=== PATIENT | female | born 1970 | race Caucasian/White ===

== ENCOUNTER 2018-05-27 18:16 | Inpatient (IN) | payer MEDICAID ==
[~2018-05-27] VITALS: Ht 154.9 cm; Wt 84.4 kg
[2018-05-27 18:23] VITALS: BP_SYST 159
[2018-05-27 19:22] LABS: BARBITURATE, URINE NEGATIVE (NEG <=200); BENZODIAZEPINE, URINE POSITIVE (NEG <=150); CANNABINOID, URINE POSITIVE (NEG <=50); COCAINE, URINE NEGATIVE (NEG <=150); METHAMPHETAMINES SCREEN,URINE NEGATIVE (NEG <=500); OPIATE, URINE POSITIVE (NEG <=100); PHENCYCLIDINE SCREEN,URINE NEGATIVE (NEG <=25); UR TRICYCLIC ANTIDEPRESSANTS NEGATIVE (NEG <=300); URINE AMPHETAMINE NEGATIVE (NEG <=500); URINE METHADONE NEGATIVE (NEG <=200); URINE OXYCODONE SCREEN NEGATIVE (NEG <=100); URINE PROPOXYPHENE SCREEN NEGATIVE (NEG <=300)
[2018-05-27 19:40] LABS: BASOPHILS % (AUTO) 0.4 % (0.0-2.0); EOSINOPHILS # (AUTO) 0.1 K/uL (0.0-0.4); EOSINOPHILS % (AUTO) 1.8 % (0.0-4.0); HEMOGLOBIN 12.3 g/dL (12.0-16.0); LYMPHOCYTES # (AUTO) 1.6 K/uL (1.0-5.5); LYMPHOCYTES % (AUTO) 24.1 % (20.5-51.5); MEAN CORPUSCULAR HEMOGLOBIN 26 pg (27-31); MEAN CORPUSCULAR HGB CONC 33 % (32-36); MEAN CORPUSCULAR VOLUME 79 fL (79.0-98.0); MONOCYTES # (AUTO) 0.5 K/uL (0.0-1.0); MONOCYTES % (AUTO) 6.9 % (1.7-9.3); NEUTROPHILS # (AUTO) 4.6 K/uL (1.8-7.7); NEUTROPHILS % (AUTO) 66.8 % (40.0-70.0); PLATELET COUNT (AUTO) 345 K/uL (130-430); RED CELL DISTRIBUTION WIDTH 13.5 % (9.0-15.0); WHITE BLOOD COUNT (AUTO) 6.8 K/uL (4.8-10.8)
[2018-05-27 19:49] LABS: CALCIUM 9.6 mg/dL (8.4-11.0); CREATININE 0.8 mg/dL (0.55-1.30); POTASSIUM 3.7 mmol/L (3.5-5.1)
[2018-05-27 19:53] LABS: PROTHROMBIN TIME 9.7 SECS (9.5-12.5); TOTAL BILIRUBIN 0.5 mg/dL (0.0-1.0)
[2018-05-27] MEDS ORDERED: methylPREDNISolone SOD SUCC/PF 62.5 MG/ML VIAL IVP ONE (21:45)
[2018-05-27] MEDS ORDERED: DIPHENHYDRAMINE INJ 50 MG/ML VIAL IVP ONE (21:45)
[2018-05-27] MEDS ORDERED: LORazepam 2 MG/ML VIAL (FOR ER USE) IVP ONE (21:45)
[2018-05-27 23:55] VITALS: BP_SYST 131
[2018-05-28] MEDS ORDERED: LEVO200T8 PO (00:22)
[2018-05-28] MEDS ORDERED: MORP15TA PO (00:22)
[2018-05-28] MEDS ORDERED: HYDR-4272 PO (00:22)
[2018-05-28] MEDS ORDERED: BEN50 PO (00:22)
[2018-05-28] MEDS ORDERED: LORA-259 PO (00:22)
[2018-05-28] MEDS ORDERED: CYCL-10 PO (00:22)
[2018-05-28] MEDS ORDERED: PANT20TA2 PO (00:22)
[2018-05-28] MEDS ORDERED: CAT.1 PO (00:22)
[2018-05-28] MEDS ORDERED: LEVO100T9 PO (00:38)
[2018-05-28] MEDS ORDERED: LEVO125T8 PO (00:38)
[2018-05-28] MEDS: NACL 0.9% 1,000 ML IV SCH ×3 (00:56→21:41)
[2018-05-28] MEDS: LORazepam 2 MG/ML VIAL IVP PRN ×4 (00:57→21:39)
[2018-05-28 08:25] VITALS: BP_SYST 125
[2018-05-28] MEDS: HEPARIN SODIUM,PORCINE 5000 UNITS/ML VIAL SUBCUT SCH ×2 (08:26→21:00)
[2018-05-28] MEDS: METOPROLOL TARTRATE 25 MG TABLET PO SCH ×2 (08:26→21:00)
[2018-05-28] MEDS ORDERED: POTASSIUM CHLORIDE 20 MEQ TAB.PRT.SR PO PRN (09:15)
[2018-05-28] MEDS ORDERED: MAGNESIUM SULFATE 50 ML IV PRN (09:15)
[2018-05-28] MEDS ORDERED: ONDANSETRON HCL 4 MG/2 ML VIAL IVP PRN (09:15)
[2018-05-28] MEDS ORDERED: DOCUSATE SODIUM 100 MG CAPSULE PO PRN (09:15)
[2018-05-28] MEDS ORDERED: LEVOTHYROXINE SODIUM 0.1 MG TABLET PO ONE (09:15)
[2018-05-28] MEDS ORDERED: ZOLPIDEM TARTRATE 5 MG TABLET PO PRN (09:15)
[2018-05-28] MEDS ORDERED: ACETAMINOPHEN 325 MG TABLET PO PRN (09:15)
[2018-05-28] MEDS ORDERED: MORPHINE 2 MG/ML INJ. SYRINGE IVP PRN ×2 (09:15→09:30)
[2018-05-28] MEDS ORDERED: DIPHENHYDRAMINE HCL 25 MG CAPSULE PO PRN (09:15)
[2018-05-28] MEDS ORDERED: MUPIROCIN 2% TOPICAL OINTMENT 22 GM NS PRN (09:15)
[2018-05-28] MEDS: MORPHINE 2 MG/ML INJ. SYRINGE IVP PRN ×3 (10:29→21:40)
[2018-05-28 12:02] VITALS: BP_SYST 106
[2018-05-28 16:21] VITALS: BP_SYST 114
[2018-05-28 20:00] VITALS: BP_SYST 104
[2018-05-29 00:49] VITALS: BP_SYST 116
[2018-05-29] MEDS: LORazepam 2 MG/ML VIAL IVP PRN ×3 (01:55→10:04)
[2018-05-29] MEDS: MORPHINE 2 MG/ML INJ. SYRINGE IVP PRN ×3 (01:56→10:05)
[2018-05-29 06:00] LABS: BASOPHILS % (AUTO) 0.8 % (0.0-2.0); EOSINOPHILS # (AUTO) 0.2 K/uL (0.0-0.4); HEMATOCRIT 31.5 % (36-48); HEMOGLOBIN 10.4 g/dL (12.0-16.0); LYMPHOCYTES # (AUTO) 2.1 K/uL (1.0-5.5); LYMPHOCYTES % (AUTO) 46.3 % (20.5-51.5); MEAN CORPUSCULAR HEMOGLOBIN 26 pg (27-31); MEAN CORPUSCULAR HGB CONC 33 % (32-36); MEAN CORPUSCULAR VOLUME 79 fL (79.0-98.0); MONOCYTES # (AUTO) 0.4 K/uL (0.0-1.0); MONOCYTES % (AUTO) 9.9 % (1.7-9.3); NEUTROPHILS # (AUTO) 1.6 K/uL (1.8-7.7); PLATELET COUNT (AUTO) 274 K/uL (130-430); RED BLOOD CELL COUNT(AUTO) 3.97 MIL/uL (4.2-6.2)
[2018-05-29 06:44] LABS: WHITE BLOOD COUNT (AUTO) 4.3 K/uL (4.8-10.8)
[2018-05-29 06:50] LABS: CALCIUM 8.7 mg/dL (8.4-11.0); CREATININE 0.69 mg/dL (0.55-1.30); POTASSIUM 3.7 mmol/L (3.5-5.1)
[2018-05-29] MEDS ORDERED: LEVOTHYROXINE SODIUM 0.1 MG TABLET PO SCH (07:00)
[2018-05-29 08:06] VITALS: BP_SYST 110
[2018-05-29] MEDS: NACL 0.9% 1,000 ML IV SCH (08:51)
[2018-05-29] MEDS: HEPARIN SODIUM,PORCINE 5000 UNITS/ML VIAL SUBCUT SCH (08:52)
[2018-05-29] MEDS: METOPROLOL TARTRATE 25 MG TABLET PO SCH (08:52)
[2018-05-29 10:39] VITALS: BP_SYST 110
[2018-05-29 12:00] VITALS: BP_SYST 118
== END 2018-05-29 13:15 | disposition home or self-care (01) | DRG 203 ==
LOC: SED 18:16 → STU 23:10
PROVIDERS: ADMIT General Practice; ATTEND General Practice
DX: R07.89 Other chest pain (principal); G92 Toxic encephalopathy; F11.20 Opioid dependence, uncomplicated; F41.9 Anxiety disorder, unspecified; E03.9 Hypothyroidism, unspecified; E66.9 Obesity, unspecified; G89.4 Chronic pain syndrome; I10 Essential (primary) hypertension; K21.9 Gastro-esophageal reflux disease without esophagitis; S30.861A Insect bite (nonvenomous) of abdominal wall, initial encounter; S80.862A Insect bite (nonvenomous), left lower leg, initial encounter; W57.XXXA Bitten or stung by nonvenomous insect and other nonvenomous arthropods, initial encounter; Z82.49 Family history of ischemic heart disease and other diseases of the circulatory system; Z87.442 Personal history of urinary calculi; Z88.8 Allergy status to other drugs, medicaments and biological substances; Z91.041 Radiographic dye allergy status; Y93.89 Activity, other specified; Y92.89 Other specified places as the place of occurrence of the external cause; Y99.8 Other external cause status; Z90.49 Acquired absence of other specified parts of digestive tract; Z79.899 Other long term (current) drug therapy; Z68.35 Body mass index [BMI] 35.0-35.9, adult; Z88.1 Allergy status to other antibiotic agents
CPT/HCPCS: 36415; 71045; 80048; 80053; 80307; 82150-TC; 82550-TC; 83036; 83690-TC; 83735-TC; 83880; 84443-TC; 84484; 84703; 85025; 85379; 85610-TC; 85730-TC; 93005; 93306; 96374; 96375; 99285; J1200; J1644; J2060; J2270; J2405; J2930; J7030; Q0163

== ENCOUNTER 2019-05-31 15:26 | Emergency (ER) | payer MEDICAID, OTHER ==
[~2019-05-31] VITALS: Ht 154.9 cm; Wt 81.6 kg
[~2019-05-31 15:26] MED LIST: BEN50 PO; CAT.1 PO; CYCL-10 PO; HYDR-4272 PO; LEVO125T8 PO; LORA-259 PO; MORP15TA PO; PANT20TA2 PO
[2019-05-31 15:30] VITALS: BP_SYST 157
[2019-05-31 16:48] LABS: BASOPHILS # (AUTO) 0.1 K/uL (0.0-0.2); BASOPHILS % (AUTO) 0.8 % (0.0-2.0); EOSINOPHILS # (AUTO) 0.1 K/uL (0.0-0.4); EOSINOPHILS % (AUTO) 2.3 % (0.0-4.0); HEMATOCRIT 37.4 % (36-48); HEMOGLOBIN 12.2 g/dL (12.0-16.0); LYMPHOCYTES # (AUTO) 1.7 K/uL (1.0-5.5); LYMPHOCYTES % (AUTO) 27.8 % (20.5-51.5); MEAN CORPUSCULAR HEMOGLOBIN 27 pg (27-31); MEAN CORPUSCULAR HGB CONC 33 % (32-36); MEAN CORPUSCULAR VOLUME 82 fL (79.0-98.0); MONOCYTES # (AUTO) 0.5 K/uL (0.0-1.0); NEUTROPHILS # (AUTO) 3.8 K/uL (1.8-7.7); NEUTROPHILS % (AUTO) 61.1 % (40.0-70.0); PLATELET COUNT (AUTO) 320 K/uL (130-430); RED BLOOD CELL COUNT(AUTO) 4.55 MIL/uL (4.2-6.2); RED CELL DISTRIBUTION WIDTH 15.2 % (9.0-15.0); WHITE BLOOD COUNT (AUTO) 6.2 K/uL (4.8-10.8)
[2019-05-31 17:04] LABS: CALCIUM 9.3 mg/dL (8.4-11.0); CREATININE 0.78 mg/dL (0.55-1.30); POTASSIUM 3.9 mmol/L (3.5-5.1)
[2019-05-31 17:10] LABS: ALBUMIN 3.9 g/dL (3.4-4.8); TOTAL BILIRUBIN 0.2 mg/dL (0.0-1.0)
[2019-05-31 18:39] LABS: BILIRUBIN,URINE NEGATIVE (NEGATIVE); BLOOD, URINE 1+ (NEGATIVE); CLARITY/URINE CLEAR (CLEAR); COLOR,URINE YELLOW (YELLOW); GLUCOSE,URINE NEGATIVE (NEGATIVE); KETONES,URINE NEGATIVE (NEGATIVE); LEUKOCYTE ESTERASE ,URINE NEGATIVE (NEGATIVE); NITRITE, URINE NEGATIVE (NEGATIVE); PH,URINE 7.5 (5.0-8.0); PROTEIN URINE NEGATIVE (NEGATIVE); UROBILINOGEN,URINE 0.2 (0.2-1.0)
[2019-05-31 19:07] LABS: BACTERIA,URINE FEW /HPF (None Seen); MUCUS,URINE None Seen /LPF (None Seen); WBC,URINE 0-3 /HPF (0-3)
[2019-05-31] MEDS ORDERED: METOCLOPRAMIDE HCL 10 MG/2 ML VIAL IVP ONE (20:15)
[2019-05-31] MEDS ORDERED: NACL 0.9% 1,000 ML IV ONE (20:15)
[2019-05-31] MEDS ORDERED: MORPHINE 4 MG/ML INJ. SYRINGE IVP ONE (20:15)
[2019-05-31] MEDS ORDERED: DIPHENHYDRAMINE INJ 50 MG/ML VIAL IVP ONE (20:45)
[2019-05-31] MEDS ORDERED: MORPHINE 2 MG/ML INJ. SYRINGE IVP ONE (21:45)
[2019-05-31 22:36] VITALS: BP_SYST 136
== END 2019-05-31 22:36 | disposition home or self-care (01) ==
LOC: SED 15:26
DX: R10.9 Unspecified abdominal pain (principal); K21.9 Gastro-esophageal reflux disease without esophagitis; Z87.442 Personal history of urinary calculi; Z88.1 Allergy status to other antibiotic agents; Z88.2 Allergy status to sulfonamides; Z88.6 Allergy status to analgesic agent; Z88.8 Allergy status to other drugs, medicaments and biological substances; Z91.041 Radiographic dye allergy status; Z79.899 Other long term (current) drug therapy
CPT/HCPCS: 36415; 74176; 80053; 81000; 83690; 85025; 96361; 96374; 96375; 99284; J1200; J2270 ×2; J2765; J7030; 96376

== ENCOUNTER 2019-11-16 13:36 | Emergency (ER) | payer MEDICAID, OTHER ==
[~2019-11-16] VITALS: Ht 154.9 cm; Wt 80.7 kg
[2019-11-16] MEDS ORDERED: SERT100T PO (14:14)
[2019-11-16 14:15] VITALS: BP_SYST 163
[2019-11-16] MEDS ORDERED: ONDANSETRON HCL 4 MG/2 ML VIAL IVP ONE (14:45)
[2019-11-16] MEDS ORDERED: MORPHINE 4 MG/ML INJ. SYRINGE IVP ONE ×2 (14:45→16:00)
[2019-11-16] MEDS ORDERED: NACL 0.9% 1,000 ML IV ONE (14:45)
[2019-11-16 15:28] LABS: BASOPHILS % (AUTO) 0.4 % (0.0-2.0); EOSINOPHILS # (AUTO) 0.2 K/uL (0.0-0.4); EOSINOPHILS % (AUTO) 2.9 % (0.0-4.0); HEMATOCRIT 41.1 % (36-48); HEMOGLOBIN 13.7 g/dL (12.0-16.0); LYMPHOCYTES # (AUTO) 2.5 K/uL (1.0-5.5); LYMPHOCYTES % (AUTO) 31.6 % (20.5-51.5); MEAN CORPUSCULAR HEMOGLOBIN 28 pg (27-31); MEAN CORPUSCULAR HGB CONC 33 % (32-36); MEAN CORPUSCULAR VOLUME 83 fL (79.0-98.0); MONOCYTES # (AUTO) 0.5 K/uL (0.0-1.0); MONOCYTES % (AUTO) 5.7 % (1.7-9.3); NEUTROPHILS # (AUTO) 4.7 K/uL (1.8-7.7); NEUTROPHILS % (AUTO) 59.4 % (40.0-70.0); PLATELET COUNT (AUTO) 258 K/uL (130-430); RED BLOOD CELL COUNT(AUTO) 4.96 MIL/uL (4.2-6.2); RED CELL DISTRIBUTION WIDTH 15.1 % (9.0-15.0); WHITE BLOOD COUNT (AUTO) 7.9 K/uL (4.8-10.8)
[2019-11-16 15:39] LABS: CREATININE 0.65 mg/dL (0.55-1.30); POTASSIUM 3.9 mmol/L (3.5-5.1)
[2019-11-16 15:44] LABS: ALBUMIN 3.9 g/dL (3.4-4.8); TOTAL BILIRUBIN 0.5 mg/dL (0.0-1.0)
[2019-11-16 16:24] VITALS: BP_SYST 121
[2019-11-16 16:46] LABS: BILIRUBIN,URINE NEGATIVE (NEGATIVE); BLOOD, URINE 1+ (NEGATIVE); CLARITY/URINE CLEAR (CLEAR); COLOR,URINE YELLOW (YELLOW); GLUCOSE,URINE NEGATIVE (NEGATIVE); KETONES,URINE NEGATIVE (NEGATIVE); LEUKOCYTE ESTERASE ,URINE 1+ (NEGATIVE); NITRITE, URINE NEGATIVE (NEGATIVE); PROTEIN URINE NEGATIVE (NEGATIVE); UROBILINOGEN,URINE 0.2 (0.2-1.0)
[2019-11-16 17:02] LABS: BARBITURATE, URINE POSITIVE (NEG <=200); BENZODIAZEPINE, URINE POSITIVE (NEG <=150); CANNABINOID, URINE NEGATIVE (NEG <=50); COCAINE, URINE NEGATIVE (NEG <=150); METHAMPHETAMINES SCREEN,URINE NEGATIVE (NEG <=500); OPIATE, URINE NEGATIVE (NEG <=100); PHENCYCLIDINE SCREEN,URINE NEGATIVE (NEG <=25); UR TRICYCLIC ANTIDEPRESSANTS NEGATIVE (NEG <=300); URINE AMPHETAMINE NEGATIVE (NEG <=500); URINE METHADONE NEGATIVE (NEG <=200); URINE OXYCODONE SCREEN NEGATIVE (NEG <=100); URINE PROPOXYPHENE SCREEN NEGATIVE (NEG <=300)
[2019-11-16 17:05] LABS: BACTERIA,URINE FEW /HPF (None Seen); MUCUS,URINE 1+ /LPF (None Seen); RBC,URINE 0-3 /HPF (0-3)
== END 2019-11-16 16:21 | disposition home or self-care (01) ==
LOC: SED 13:36
DX: F11.23 Opioid dependence with withdrawal (principal); K21.9 Gastro-esophageal reflux disease without esophagitis; R11.2 Nausea with vomiting, unspecified; Z88.1 Allergy status to other antibiotic agents; Z88.2 Allergy status to sulfonamides; Z88.8 Allergy status to other drugs, medicaments and biological substances
CPT/HCPCS: 36415; 80053; 80307; 81000; 85025; 87086; 93005; 96361; 96374; 96375; 96376; 99284; J2270; J2405; J7030

== ENCOUNTER 2021-08-05 22:15 | Emergency (ER) | payer MEDICAID, OTHER ==
[~2021-08-05 22:15] MED LIST changes: +BACL10TA PO; -BEN50 PO; -CAT.1 PO; -CYCL-10 PO; -HYDR-4272 PO; -LEVO125T8 PO; -MORP15TA PO; +OXYC-133 PO; +SERT100T PO
--- NOTE | 2021-08-05 22:39 | NUR ---
Patient left without being triaged. Patient left without being seen. ER MD aware
== END 2021-08-05 22:39 | disposition left against medical advice (07) ==
LOC: SED 22:15
DX: R22.0 Localized swelling, mass and lump, head (principal); Z53.21 Procedure and treatment not carried out due to patient leaving prior to being seen by health care provider

== ENCOUNTER 2021-08-08 20:13 | Emergency (ER) | payer MEDICAID ==
[~2021-08-08] VITALS: Ht 154.9 cm; Wt 81.6 kg
[2021-08-08 20:19] VITALS: BP_SYST 168
--- NOTE | 2021-08-08 22:30 | NUR ---
Patient to ER bed 08 to gown for evaluation. Side rails up.
--- NOTE | 2021-08-08 22:32 | NUR ---
RN TO PT ROOM. PT ALERT AND ORIENTED X4. COMPLAINING OF JAW PAIN THAT HAS LASTED FOR WEEKS. RATES PAIN 10/10. REPORTS FRONTAL SINUS CYST. REPORTS THAT SHE HAS NOT BEEN ABLE TO CONTROL PAIN. MOTHER AT BEDSIDE.
--- NOTE | 2021-08-08 23:00 | NUR ---
# 20 gauge angiocath placed to LEFT AC. Use of asceptic technique. Opsite placed over site. Blood return noted. Blood for lab drawn from site. Flushed with 10 cc of normal saline. No evidence of infiltration noted. Patient tolerated well.
--- NOTE | 2021-08-08 23:00 | NUR ---
PT REFUSED CT WITH CONTRAST DUE TO PT REPORTING ALLERGIES TO CONTRAST. PT ALSO REFUSED MORPHINE. PT REPORTS THAT MORPHINE CAUSES "HEART TO RACE". NOTIFIED.
[2021-08-08] MEDS: MORPHINE 4 MG INJ. 4 MG/ML VIAL IVP ONE (23:16)
[2021-08-08 23:17] LABS: BASOPHILS % (AUTO) 0.6 % (0.0-2.0); EOSINOPHILS # (AUTO) 0.3 K/uL (0.0-0.4); EOSINOPHILS % (AUTO) 6.6 % (0.0-4.0); HEMATOCRIT 37.8 % (36-48); HEMOGLOBIN 12.6 g/dL (12.0-16.0); LYMPHOCYTES # (AUTO) 2.3 K/uL (1.0-5.5); LYMPHOCYTES % (AUTO) 49.1 % (20.5-51.5); MEAN CORPUSCULAR HEMOGLOBIN 28 pg (27-31); MEAN CORPUSCULAR HGB CONC 33 % (32-36); MEAN CORPUSCULAR VOLUME 84 fL (79.0-98.0); MONOCYTES # (AUTO) 0.4 K/uL (0.0-1.0); MONOCYTES % (AUTO) 9.2 % (1.7-9.3); NEUTROPHILS # (AUTO) 1.6 K/uL (1.8-7.7); NEUTROPHILS % (AUTO) 34.5 % (40.0-70.0); PLATELET COUNT (AUTO) 227 K/uL (130-430); RED BLOOD CELL COUNT(AUTO) 4.52 MIL/uL (4.2-6.2); RED CELL DISTRIBUTION WIDTH 15.4 % (9.0-15.0); WHITE BLOOD COUNT (AUTO) 4.8 K/uL (4.8-10.8)
[2021-08-08] MEDS: HYDROmorphone 1 MG/ML INJ. CARTRIDGE IVP ONE (23:37)
--- NOTE | 2021-08-08 23:58 | NUR ---
RN VERIFIED EKG ORDER WITH MD. MD GAVE VERBAL ORDERS TO DC 2ND EKG ORDER.
[2021-08-09 00:48] LABS: ERYTHROCYTE SEDIMENTATION RATE 8 MM/HR (0-20)
--- NOTE | 2021-08-09 01:00 | NUR ---
RN TO PT ROOM DUE TO PT COMPLAINING OF BREAKTHROUGH PAIN. PT STATES THAT SHE WANTS MD TO PRESCRIBE HER MORPHINE. RN NOTIFIED .
[2021-08-09 02:00] VITALS: BP_SYST 136
[2021-08-09] MEDS: HYDROmorphone 1 MG/ML INJ. CARTRIDGE IVP ONE (02:07)
--- NOTE | 2021-08-09 03:59 | NUR ---
PT REFUSED DISCHARGE VITALS.
--- NOTE | 2021-08-09 04:00 | NUR ---
Patient does not wish to proceed with medical care recommended by MD CURT. Patient given information related to possible complications, up to and including , which could occur as a result of leaving hospital at this time. Patient verbalizes understanding of risks involved leaving against medical advice. Patient has signed AMA form. AMA FORM PLACED IN CHART.
[2021-08-09 04:07] LABS: ANION GAP 9 (5-15); CHLORIDE 105 mmol/L (98-107); GLUCOSE 95 mg/dL (70-99); POTASSIUM 4.1 mmol/L (3.5-5.1); SODIUM SERUM 140 mmol/L (136-145)
[2021-08-09 04:08] LABS: CALCIUM 8.4 mg/dL (8.4-11.0); GFR AFRICAN AMERICAN 84 mL/min (>90); TOTAL BILIRUBIN 0.1 mg/dL (0.0-1.0); UREA NITROGEN, BLOOD 14 mg/dL (8-21)
[2021-08-09 04:09] LABS: ALANINE AMINOTRANSFERASE 19 U/L (12-78); ALBUMIN 3.9 g/dL (3.4-4.8); ASPARTATE AMINOTRANSFERASE 30 U/L (10-37); C-REACTIVE PROTEIN QUANT < 0.2 mg/dL (0-0.5)
== END 2021-08-09 04:00 | disposition left against medical advice (07) ==
LOC: SED 20:13
DX: R07.89 Other chest pain (principal); K08.89 Other specified disorders of teeth and supporting structures; K21.9 Gastro-esophageal reflux disease without esophagitis; Z88.1 Allergy status to other antibiotic agents; Z88.2 Allergy status to sulfonamides; Z88.8 Allergy status to other drugs, medicaments and biological substances; Z79.899 Other long term (current) drug therapy
CPT/HCPCS: 36415; 70486; 71045; 76376; 80053; 84484; 85025; 85651; 86140; 93005; 96374; 96376; 99285; J1170 ×2; Q9967

== ENCOUNTER → 2021-12-31 | Emergency (ER) | payer MEDICAID ==
[~2021-12-31] VITALS: Ht 152.4 cm; Wt 91.6 kg
[~2021-12-31] MED LIST changes: +ONDANSETRON 4 MG ODT TAB PO ONE; +OXYCODONE/ACETAMINOPHEN *10*mg/325 mg TABLET PO ONE
[2021-12-31 17:40] VITALS: BP_SYST 147
--- NOTE | 2021-12-31 17:40 | NUR ---
Patient to ER bed 7 to gown for evaluation. Side rails up. Report given to [].
--- NOTE | 2021-12-31 17:41 | NUR ---
REPORT GIVEN TO HANS LITTLE
--- NOTE | 2021-12-31 18:00 | NUR ---
PT STATES HER LAST BM WAS 3 WEEKS AGO, NOW WITH BLOATING AND ABD PAIN, WHICH SHE BELIEVES IS CAUSING HER CHEST PAIN. PT STATES SHE HAS BEEN HAVING SMALL BM'S LIKE ROPES FOR THE LAST 3 WEEKS. PT STATES SHE IS MISERABLE AND HER STOMACH IS BIG/HARD.
--- NOTE | 2021-12-31 18:40 | NUR ---
PT UP TO RESTROOM AND RETURNED TO BED SAFELY, NO CHANGES.
[2021-12-31 19:52] LABS: ANION GAP 7 (5-15); CALCIUM 8.3 mg/dL (8.4-11.0); CHLORIDE 102 mmol/L (98-107); CREATININE 0.84 mg/dL (0.55-1.30); GLUCOSE 101 mg/dL (70-99); POTASSIUM 3.8 mmol/L (3.5-5.1); SODIUM SERUM 138 mmol/L (136-145); UREA NITROGEN, BLOOD 16 mg/dL (8-21)
[2021-12-31 19:53] LABS: BASOPHILS % (AUTO) 0.6 % (0.0-2.0); EOSINOPHILS # (AUTO) 0.3 K/uL (0.0-0.4); EOSINOPHILS % (AUTO) 3.9 % (0.0-4.0); HEMATOCRIT 36.1 % (36-48); LYMPHOCYTES # (AUTO) 2.1 K/uL (1.0-5.5); LYMPHOCYTES % (AUTO) 30.8 % (20.5-51.5); MEAN CORPUSCULAR HEMOGLOBIN 27 pg (27-31); MEAN CORPUSCULAR HGB CONC 33 % (32-36); MEAN CORPUSCULAR VOLUME 81 fL (79.0-98.0); MONOCYTES # (AUTO) 0.5 K/uL (0.0-1.0); MONOCYTES % (AUTO) 8.1 % (1.7-9.3); NEUTROPHILS # (AUTO) 3.8 K/uL (1.8-7.7); NEUTROPHILS % (AUTO) 56.6 % (40.0-70.0); PLATELET COUNT (AUTO) 261 K/uL (130-430); RED BLOOD CELL COUNT(AUTO) 4.45 MIL/uL (4.2-6.2); RED CELL DISTRIBUTION WIDTH 14.7 % (9.0-15.0); WHITE BLOOD COUNT (AUTO) 6.8 K/uL (4.8-10.8)
[2021-12-31 20:01] LABS: ALANINE AMINOTRANSFERASE 23 U/L (12-78); ALBUMIN 3.7 g/dL (3.4-4.8); ASPARTATE AMINOTRANSFERASE 21 U/L (10-37); TOTAL BILIRUBIN 0.1 mg/dL (0.0-1.0)
[2021-12-31 20:03] LABS: GFR AFRICAN AMERICAN 91 mL/min (>90)
[2021-12-31 20:14] LABS: BILIRUBIN,URINE NEGATIVE (NEGATIVE); BLOOD, URINE 2+ (NEGATIVE); CLARITY/URINE CLEAR (CLEAR); COLOR,URINE YELLOW (YELLOW); GLUCOSE,URINE NEGATIVE (NEGATIVE); KETONES,URINE NEGATIVE (NEGATIVE); LEUKOCYTE ESTERASE ,URINE NEGATIVE (NEGATIVE); NITRITE, URINE NEGATIVE (NEGATIVE); PROTEIN URINE NEGATIVE (NEGATIVE); UROBILINOGEN,URINE 0.2 (0.2-1.0)
--- NOTE | 2021-12-31 20:19 | NUR ---
Pt refused compazine and benadryl ivp. pt requests morphine and dilaudid, pt stated "only morphine or dilaudid works for me" Dr Reveles made aware. will continue to monitor.
--- NOTE | 2021-12-31 20:19 | NUR ---
Pt ambulated to bathroom with steady gait unassisted.
[2021-12-31 20:29] LABS: BACTERIA,URINE FEW /HPF (None Seen); MUCUS,URINE 1+ /LPF (None Seen); RBC,URINE 0-3 /HPF (0-3); WBC,URINE 0-3 /HPF (0-3)
--- NOTE | 2021-12-31 20:52 | NUR ---
Report given to ANABEL Fitch for continuation of care
[2021-12-31] MEDS: DIPHENHYDRAMINE INJ 50 MG/ML VIAL IVP ONE (21:04)
[2021-12-31] MEDS: PROCHLORPERAZINE EDISYLATE 10 MG/2 ML VIAL IVP ONE (21:05)
--- NOTE | 2021-12-31 21:16 | NUR ---
spoke with pt and pt going to xray
[2021-12-31] MEDS: fentaNYL CITRATE/PF 100 MCG/2 ML AMP IVP ONE ×2 (21:34→21:35)
[2021-12-31 23:51] VITALS: BP_SYST 143
--- NOTE | 2022-01-01 22:05 | NUR ---
Vangie Ruff is a 51-year-old Female with a history of anxiety on Zoloft, GERD on Protonix, hypothyroidism on Levothyroxine, and diabetes who presents to the ED for a complaint of left upper chest pain radiating to the left-sided neck and left arm today. The chest pain is described as pressure and exacerbates when walking. She further states shortness of breath when she walks and has a headache. Per patient, she is under lots of stress due to her apartment complex. Patient says she takes Percocet as needed for pain. Otherwise, denies fever, chills, palpitations, nausea, vomiting, vision changes, or any other complaints.
== END | disposition short-term general hospital (02) ==
LOC: SED 17:29
DX: R07.89 Other chest pain (principal); G43.719 Chronic migraine without aura, intractable, without status migrainosus; R10.84 Generalized abdominal pain; E11.9 Type 2 diabetes mellitus without complications; K21.9 Gastro-esophageal reflux disease without esophagitis; Z90.49 Acquired absence of other specified parts of digestive tract; Z88.1 Allergy status to other antibiotic agents; Z88.2 Allergy status to sulfonamides; Z88.6 Allergy status to analgesic agent; Z88.8 Allergy status to other drugs, medicaments and biological substances
CPT/HCPCS: 36415; 71045; 74021; 80053; 81000; 83880; 84484; 85025; 96374; 99285; J3010; J0780; J1200

== ENCOUNTER 2022-02-21 16:35 | Inpatient (IN) | payer MEDICAID, OTHER ==
[~2022-02-21] VITALS: Ht 154.9 cm; Wt 98.4 kg
[~2022-02-21 16:35] MED LIST changes: -ONDANSETRON 4 MG ODT TAB PO ONE; -OXYCODONE/ACETAMINOPHEN *10*mg/325 mg TABLET PO ONE
--- NOTE | 2022-02-21 16:35 | NUR ---
Patient triaged and placed in waiting room. VSS and patient appears in no acute distress at this time. Accompanied by self, awaiting available bed, and MD notified of need for MSE.
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
[2022-02-21 16:47] VITALS: BP_SYST 153
--- NOTE | 2022-02-21 16:54 | NUR ---
Dr Griffith evaluating patient in the triage room
[2022-02-21] MEDS ORDERED: ACETAMINOPHEN 500 MG TABLET PO ONE (17:00)
[2022-02-21] MEDS ORDERED: ACET-2634 PO (17:50)
[2022-02-21] MEDS ORDERED: MORPHINE 4 MG INJ. 4 MG/ML VIAL IM ONE (18:15)
[2022-02-21 18:52] LABS: BASOPHILS # (AUTO) 0.1 K/uL (0.0-0.2); BASOPHILS % (AUTO) 0.8 % (0.0-2.0); EOSINOPHILS # (AUTO) 0.2 K/uL (0.0-0.4); EOSINOPHILS % (AUTO) 2.8 % (0.0-4.0); HEMATOCRIT 37.9 % (36-48); HEMOGLOBIN 12.8 g/dL (12.0-16.0); LYMPHOCYTES # (AUTO) 1.6 K/uL (1.0-5.5); LYMPHOCYTES % (AUTO) 24.7 % (20.5-51.5); MEAN CORPUSCULAR HEMOGLOBIN 27 pg (27-31); MEAN CORPUSCULAR HGB CONC 34 % (32-36); MEAN CORPUSCULAR VOLUME 80 fL (79.0-98.0); MONOCYTES # (AUTO) 0.4 K/uL (0.0-1.0); MONOCYTES % (AUTO) 5.8 % (1.7-9.3); NEUTROPHILS # (AUTO) 4.4 K/uL (1.8-7.7); NEUTROPHILS % (AUTO) 65.9 % (40.0-70.0); PLATELET COUNT (AUTO) 299 K/uL (130-430); RED BLOOD CELL COUNT(AUTO) 4.74 MIL/uL (4.2-6.2); RED CELL DISTRIBUTION WIDTH 15.7 % (9.0-15.0); WHITE BLOOD COUNT (AUTO) 6.6 K/uL (4.8-10.8)
[2022-02-21 19:07] LABS: ANION GAP 8 (5-15); CALCIUM 7.9 mg/dL (8.4-11.0); CHLORIDE 103 mmol/L (98-107); GLUCOSE 115 mg/dL (70-99); POTASSIUM 3.9 mmol/L (3.5-5.1); SODIUM SERUM 136 mmol/L (136-145); UREA NITROGEN, BLOOD 13 mg/dL (8-21)
[2022-02-21 19:08] LABS: GFR AFRICAN AMERICAN 96 mL/min (>90)
[2022-02-21 19:15] LABS: ALANINE AMINOTRANSFERASE 4 U/L (12-78); ALBUMIN 3.6 g/dL (3.4-4.8); ASPARTATE AMINOTRANSFERASE 22 U/L (10-37); TOTAL BILIRUBIN 0.1 mg/dL (0.0-1.0)
[2022-02-21] MEDS ORDERED: NACL 0.9% 1,000 ML IV ONE (20:00)
--- NOTE | 2022-02-21 20:57 | NUR ---
Admit bed requested Patient will be admitted to care of . Admitted to TELE unit. Diagnosis CHEST PAIN Inpatient (Yes or No) YES Observation (Yes or No) NO Orientation concerns or request close to nursing station (Yes or No) NO Covid Status PENDING On vent or bipap NO Isolation requirements NO Needs a sitter NO From Home (Yes or if No enter name of facility) YES Requires Dialysis (Yes or No) NO Med Rec Completed (Yes of No) PENDING
[2022-02-21] MEDS: BACLOFEN 10 MG TABLET PO SCH (21:00)
[2022-02-21] MEDS ORDERED: OXYCODONE/ACETAMINOPHEN *10*mg/325 mg TABLET PO PRN (21:00)
[2022-02-21] MEDS ORDERED: ACETAMINOPHEN 500 MG TABLET PO PRN ×2 (21:00→21:15)
[2022-02-21] MEDS ORDERED: DEXTROSE 50% JECT 50 ML DISP.SYRIN IVP PRN (21:00)
[2022-02-21] MEDS ORDERED: INSULIN REGULAR, HUMAN 100 UNITS/ML, 10 ML VIAL (humuLIN R) SUBCUT PRN (21:00)
--- NOTE | 2022-02-21 21:01 | NUR ---
COVID TEST NEGATIVE
[2022-02-21] MEDS ORDERED: TEMAZEPAM 15 MG CAPSULE PO PRN (21:15)
[2022-02-21 22:56] VITALS: BP_SYST 124
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
--- NOTE | 2022-02-21 23:30 | NUR ---
Patient will be admitted to [facility]. Admitted to Tele unit. Will go to room 129B. Complete and up to date summary report printed. SBAR report to be given at bedside to receiving RN with opportunity for questions.
[2022-02-22] MEDS: MORPHINE 4 MG INJ. 4 MG/ML VIAL IVP PRN ×5 (00:31→21:15)
[2022-02-22 02:56] VITALS: BP_SYST 135
--- NOTE | 2022-02-22 04:48 | NUR ---
CONSULTATION PAGED REASON FOR CONSULTATION:CHEST PAIN WAS CONSULT CALLED?Y PERSON WHO WAS NOTIFIED:MICHAEL FROM [facility] CONSULTING PHYSICIAN:CARLOS A GARCIA SIDE SEAM TENDER SPECIALTY:YOGA TEACHER PHONE NUMBER:[phone] REQUESTING PHYSICIAN:CHA KEBEDE
[2022-02-22 07:27] LABS: BASOPHILS % (AUTO) 0.5 % (0.0-2.0); EOSINOPHILS # (AUTO) 0.2 K/uL (0.0-0.4); EOSINOPHILS % (AUTO) 2.9 % (0.0-4.0); HEMATOCRIT 37.4 % (36-48); HEMOGLOBIN 12.1 g/dL (12.0-16.0); LYMPHOCYTES # (AUTO) 2.3 K/uL (1.0-5.5); LYMPHOCYTES % (AUTO) 30.9 % (20.5-51.5); MEAN CORPUSCULAR HEMOGLOBIN 26 pg (27-31); MEAN CORPUSCULAR HGB CONC 32 % (32-36); MEAN CORPUSCULAR VOLUME 81 fL (79.0-98.0); MONOCYTES # (AUTO) 0.6 K/uL (0.0-1.0); MONOCYTES % (AUTO) 8.4 % (1.7-9.3); NEUTROPHILS # (AUTO) 4.3 K/uL (1.8-7.7); NEUTROPHILS % (AUTO) 57.3 % (40.0-70.0); PLATELET COUNT (AUTO) 275 K/uL (130-430); RED BLOOD CELL COUNT(AUTO) 4.59 MIL/uL (4.2-6.2); WHITE BLOOD COUNT (AUTO) 7.5 K/uL (4.8-10.8)
[2022-02-22 08:03] VITALS: BP_SYST 101
--- NOTE | 2022-02-22 08:03 | NUR ---
INITIAL ROUNDS Received pt AAOx4, no s/s resp distress, c/o pain to neck, chest and upper back-will check on pain medications. IVF infusing well to RAC at ordered rate with no s/s infiltration to site. Plan of care for the day reviewed with pt-pt verbalized her understanding. Pain management, skin and safety discussed-teach back done. Call light within reach.
[2022-02-22] MEDS ORDERED: SERTRALINE HCL 50 MG TABLET PO SCH (09:00)
[2022-02-22] MEDS: BACLOFEN 10 MG TABLET PO SCH ×3 (09:00→21:00)
[2022-02-22] MEDS: PANTOPRAZOLE SODIUM 40 MG TAB PO SCH (09:13)
[2022-02-22] MEDS: LORazepam 1 MG TABLET PO SCH (09:15)
[2022-02-22 09:20] LABS: CALCIUM 7.1 mg/dL (8.4-11.0); CREATININE 0.75 mg/dL (0.55-1.30); POTASSIUM 3.8 mmol/L (3.5-5.1)
--- NOTE | 2022-02-22 09:20 | NUR ---
REFUSED MEDICATION Pt refused the Baclofen ordered-stated he doesn't help her. Pt also refused to take the Sertraline ordered-she stated that she can not take yhe generic for Zoloft because she is allergic. She stated she can bring her Zoloft from home. Will inform .
[2022-02-22 09:29] LABS: TOTAL BILIRUBIN 0.2 mg/dL (0.0-1.0)
[2022-02-22] MEDS: ONDANSETRON HCL 4 MG/2 ML VIAL IVP PRN (12:05)
[2022-02-22] MEDS ORDERED: DOCUSATE SODIUM 100 MG CAPSULE PO ONE (13:00)
[2022-02-22] MEDS ORDERED: MAGNESIUM OXIDE 400 MG TABLET PO ONE (13:00)
[2022-02-22 17:29] VITALS: BP_SYST 103
--- NOTE | 2022-02-22 18:28 | NUR ---
CLOSING NOTE Pt resting quietly in bed with no s/s resp distress, no c/o pain or discomfort, no c/o nausea. IVF infusing well to RAC at ordered rate with no s/s infiltration to site. Pt given pitcher fresh ice chips per request. Needs met, call light within reach.
[2022-02-22 19:58] VITALS: BP_SYST 115
[2022-02-22] MEDS: DOCUSATE SODIUM 250 MG CAPSULE PO SCH (21:00)
[2022-02-22] MEDS: MAGNESIUM OXIDE 400 MG TABLET PO SCH (21:00)
[2022-02-22 23:18] LABS: BILIRUBIN,URINE NEGATIVE (NEGATIVE); BLOOD, URINE 1+ (NEGATIVE); CLARITY/URINE CLEAR (CLEAR); COLOR,URINE YELLOW (YELLOW); GLUCOSE,URINE NEGATIVE (NEGATIVE); KETONES,URINE NEGATIVE (NEGATIVE); LEUKOCYTE ESTERASE ,URINE NEGATIVE (NEGATIVE); NITRITE, URINE NEGATIVE (NEGATIVE); PROTEIN URINE NEGATIVE (NEGATIVE); UROBILINOGEN,URINE 0.2 (0.2-1.0)
[2022-02-22 23:53] VITALS: BP_SYST 102
[2022-02-23] MEDS: MORPHINE 4 MG INJ. 4 MG/ML VIAL IVP PRN ×5 (01:31→20:45)
--- NOTE | 2022-02-23 02:30 | NUR ---
Education on npo status for ultrasound. Patient maintains she needs ice chips which scientific writer gave to patient. Wants to know time of procedure. Patient notified will attempt to get time for ultrasound. Rusty Gordon RN
[2022-02-23 08:00] VITALS: BP_SYST 117
[2022-02-23] MEDS: DIPHENHYDRAMINE INJ 50 MG/ML VIAL IVP PRN ×2 (08:47→16:46)
[2022-02-23] MEDS: DOCUSATE SODIUM 250 MG CAPSULE PO SCH ×2 (08:47→20:48)
[2022-02-23] MEDS: MAGNESIUM OXIDE 400 MG TABLET PO SCH ×2 (08:48→20:48)
[2022-02-23] MEDS: PANTOPRAZOLE SODIUM 40 MG TAB PO SCH (08:48)
[2022-02-23] MEDS: BACLOFEN 10 MG TABLET PO SCH ×3 (08:49→20:48)
[2022-02-23] MEDS: ONDANSETRON HCL 4 MG/2 ML VIAL IVP PRN (10:33)
[2022-02-23 11:30] VITALS: BP_SYST 106
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
--- NOTE | 2022-02-23 13:59 | NUR ---
CONSULTATION PAGED/CALLED Reason for Consultation: [] Pulmonary Contusion Person Who was Notified: []Solo Consulting Physician: [] Jacquelin CollinsBrown Sourer Specialty: [] Pulmonary Ordering Physician: []Dr. Deluna
--- NOTE | 2022-02-23 14:46 | NUR ---
Dietitian Recommendations * [facility] diet Please refer to Nutrition Assessment for details. Addendum: 02/23/22 at [address] Amended: Links added.
[2022-02-23 16:00] VITALS: BP_SYST 116
[2022-02-23] MEDS: LORazepam 1 MG TABLET PO SCH (17:01)
[2022-02-23 20:10] VITALS: BP_SYST 105
[2022-02-23 23:29] VITALS: BP_SYST 114
--- NOTE | 2022-02-24 | NUR ---
PATIENT RESTING: Patient resting quietly. No acute distress noted. Vital signs within normal range.
[2022-02-24] MEDS: MORPHINE 4 MG INJ. 4 MG/ML VIAL IVP PRN ×6 (01:07→23:39)
[2022-02-24] MEDS: DIPHENHYDRAMINE INJ 50 MG/ML VIAL IVP PRN ×3 (02:13→17:42)
--- NOTE | 2022-02-24 07:45 | NUR ---
INITIAL ROUNDS Received pt AAOx4, no s/s resp distress, no c/o pain or discomfort, pt does c/o itchiness-will check on Benadryl. Plan of care for the day reviewed with pt-pt verbalized her understanding. Pain management, skin and safety discussed-teach back done. Call light within reach.
[2022-02-24 08:26] VITALS: BP_SYST 113
[2022-02-24] MEDS: BACLOFEN 10 MG TABLET PO SCH ×3 (08:59→20:08)
[2022-02-24] MEDS: DOCUSATE SODIUM 250 MG CAPSULE PO SCH ×2 (08:59→20:07)
[2022-02-24] MEDS: MAGNESIUM OXIDE 400 MG TABLET PO SCH ×2 (09:02→20:07)
[2022-02-24] MEDS: PANTOPRAZOLE SODIUM 40 MG TAB PO SCH (09:02)
[2022-02-24 12:00] VITALS: BP_SYST 110
[2022-02-24] MEDS: LORazepam 1 MG TABLET PO SCH (13:07)
--- NOTE | 2022-02-24 13:21 | NUR ---
ANXIETY Pt c/o feeling very anxious, pt given Ativan as ordered. Anxiety issues discussed with pt-she is worried about her dog a home. Light turned down low to promote rest. Call light within reach.
[2022-02-24 16:00] VITALS: BP_SYST 112
[2022-02-24] MEDS ORDERED: LORazepam 2 MG/ML VIAL IVP ONE (17:00)
--- NOTE | 2022-02-24 18:18 | NUR ---
CLOSING NOTE Pt sitting up in bed eating her dinner, no further c/o pain or itching at this time. Pt given MRI checklist to fill out. Fresh cup of ice given by SKATE BOARDER per request. Needs met, call light within reach.
--- NOTE | 2022-02-24 19:40 | NUR ---
complaining of chest,neck and right arm painpost trauma pain due pain medication given, safety/fall precaution initiated ,able to walk to hallway with steady gait.
[2022-02-24 20:00] VITALS: BP_SYST 124
[2022-02-24] MEDS: ONDANSETRON HCL 4 MG/2 ML VIAL IVP PRN (21:44)
[2022-02-25] MEDS: DIPHENHYDRAMINE INJ 50 MG/ML VIAL IVP PRN ×4 (00:33→21:03)
[2022-02-25 00:54] VITALS: BP_SYST 115
[2022-02-25 04:10] VITALS: BP_SYST 121
[2022-02-25] MEDS: MORPHINE 4 MG INJ. 4 MG/ML VIAL IVP PRN ×5 (04:10→21:24)
--- NOTE | 2022-02-25 05:38 | NUR ---
Paged Dr. Deluna for break through pain
--- NOTE | 2022-02-25 05:43 | NUR ---
HIGH ALERT NOTE: Called Dr. Deluna back at [phone] identified within the medical roster to verify physician authenticity. for break through pain Morphine 4 mg x1 extra dose
[2022-02-25] MEDS ORDERED: MORPHINE 4 MG INJ. 4 MG/ML VIAL IVP ONE (05:45)
[2022-02-25 08:00] VITALS: BP_SYST 124
--- NOTE | 2022-02-25 08:15 | NUR ---
Opening Notes Patient is awake, alert and oriented x4. No resp distress noted. Breathing is even and unlabored, RA. Pt is c/o neck and back pain, 9, requesting pain meds. Administered Morphine 4 mg IVP at 0844, tolerated well. IV site on right hand 22 gauge intact, saline lock. Pt is ambulatory, steady gait. Pending MRI of cervical spine/chest. Ativan to be given prior to scan. Pt aware and agreed. All needs met. Safety and fall precautions in place. Bed in lowest position, locked. Will continue to monitor.
[2022-02-25] MEDS: MAGNESIUM OXIDE 400 MG TABLET PO SCH ×2 (08:30→21:19)
[2022-02-25] MEDS: PANTOPRAZOLE SODIUM 40 MG TAB PO SCH (08:30)
[2022-02-25] MEDS: BACLOFEN 10 MG TABLET PO SCH ×3 (08:31→21:00)
[2022-02-25] MEDS: DOCUSATE SODIUM 250 MG CAPSULE PO SCH ×2 (08:31→21:00)
[2022-02-25] MEDS ORDERED: LIDOCAINE TOPICAL OINT 5%, 35 GM TP PRN (11:15)
[2022-02-25 12:00] VITALS: BP_SYST 130
--- NOTE | 2022-02-25 12:00 | NUR ---
Notes Patient is awake, alert and oriented x4. No resp distress noted. Breathing is even and unlabored, RA. Pt is c/o gen pain 04/15, requesting pain meds. Will administer meds when due. Pending MRI of chest/cervical spine. Will continue to monitor.
[2022-02-25] MEDS: LORazepam 1 MG TABLET PO SCH (13:12)
[2022-02-25] MEDS ORDERED: LORazepam 2 MG/ML VIAL IM ONE (13:30)
--- NOTE | 2022-02-25 13:50 | NUR ---
HIGH ALERT NOTE: Called Dr. Deluna back and identified within the medical roster to verify physician authenticity. Obtained new orders for Ativan 1 mg IVP x1 to give prior to MRI. Noted and carried out.
--- NOTE | 2022-02-25 14:00 | NUR ---
Patient transferred to radiology for MRI. No acute distress. Ativan 1 mg IVP given prior to transfer. Will continue to monitor.
--- NOTE | 2022-02-25 14:55 | NUR ---
Patient transferred to surgery. No acute distress. Will continue to monitor. Addendum: 02/25/22 at 1837 by Sydnie Main RN Disregard: for another patient
[2022-02-25 16:00] VITALS: BP_SYST 122
--- NOTE | 2022-02-25 16:00 | NUR ---
Notes Patient is awake, alert and oriented x4. Pending MRI results. No resp distress noted. Breathing is even and unlabored. Pt is c/o constant gen pain at this time. Will administer pain meds when due. No needs at this time. Will continue to monitor.
--- NOTE | 2022-02-25 18:37 | NUR ---
Closing Notes Patient is awake, alert and oriented x4. No resp distress. Breathing is even and unlabored, RA. Pt denies any pain at this time. No anxiety noted tomorrow. IV site on right hand 22 gauge intact, saline lock. Pending DC tomorrow. All needs met at this time. Safety and fall precautions in place. Bed in lowest position, alarm on, locked. Will continue to monitor.
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
[2022-02-25 20:00] VITALS: BP_SYST 123
--- NOTE | 2022-02-26 | NUR ---
NOTE EMAR FOR PRN MED TIMES. OVERALL STATED PAIN RELIEF FOR 05/16 TO 10/16. PT RESTING WELL INBETWEEN.
[2022-02-26 01:00] VITALS: BP_SYST 125
[2022-02-26] MEDS: MORPHINE 4 MG INJ. 4 MG/ML VIAL IVP PRN ×4 (01:33→13:27)
[2022-02-26] MEDS: DIPHENHYDRAMINE INJ 50 MG/ML VIAL IVP PRN ×3 (03:04→13:28)
[2022-02-26 04:00] VITALS: BP_SYST 118
--- NOTE | 2022-02-26 06:30 | NUR ---
PT ALONG WITH HER ROOM MATE STATED "SOMETHING BIT ME SEE THIS" PT POINTING TO LEFT ARM AND RIGHT INNER THIGH. CHARGE NURSE JORGE LITTLE NOTIFIED. PICTURES TAKEN AND PLACED IN CHART. POT OWN CLOTHES BAGGED. PT MOVED TO 125A.
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
[2022-02-26 08:00] VITALS: BP_SYST 113
[2022-02-26] MEDS: MAGNESIUM OXIDE 400 MG TABLET PO SCH (08:13)
[2022-02-26] MEDS: PANTOPRAZOLE SODIUM 40 MG TAB PO SCH (08:13)
[2022-02-26] MEDS: DOCUSATE SODIUM 250 MG CAPSULE PO SCH (08:13)
[2022-02-26] MEDS: BACLOFEN 10 MG TABLET PO SCH (08:19)
[2022-02-26] MEDS: LORazepam 1 MG TABLET PO SCH (11:05)
[2022-02-26 12:00] VITALS: BP_SYST 110
[2022-02-26 14:32] VITALS: BP_SYST 113
== END 2022-02-26 15:25 | disposition home or self-care (01) | DRG 135 ==
LOC: SED 16:35 → STU 20:44 → SMU 02-24 16:29
PROVIDERS: ADMIT Internal Medicine; ATTEND Internal Medicine
DX: S27.329A Contusion of lung, unspecified, initial encounter (principal); E44.1 Mild protein-calorie malnutrition; E03.9 Hypothyroidism, unspecified; F32.9 Major depressive disorder, single episode, unspecified; M54.9 Dorsalgia, unspecified; K21.9 Gastro-esophageal reflux disease without esophagitis; G89.4 Chronic pain syndrome; E11.65 Type 2 diabetes mellitus with hyperglycemia; E66.01 Morbid (severe) obesity due to excess calories; Z20.822 Contact with and (suspected) exposure to COVID-19; X58.XXXA Exposure to other specified factors, initial encounter; Z88.2 Allergy status to sulfonamides; Z88.8 Allergy status to other drugs, medicaments and biological substances; Z91.041 Radiographic dye allergy status; Z79.899 Other long term (current) drug therapy; Z98.891 History of uterine scar from previous surgery; Z68.41 Body mass index [BMI] 40.0-44.9, adult; Y93.89 Activity, other specified; Y92.89 Other specified places as the place of occurrence of the external cause; Y99.8 Other external cause status
CPT/HCPCS: 36415; 70450-TC; 71250-TC; 72040-TC; 72110; 72141; 76376; 76700-TC; 80053; 81003; 82962; 83690; 84484; 85025; 93005; 93306; 96372; 99285; G0378; J1200; J2060; J2270; J2405

== ENCOUNTER 2022-09-19 16:36 | Emergency (ER) | payer MEDICAID, OTHER ==
[~2022-09-19] VITALS: Ht 154.9 cm; Wt 86.2 kg
[~2022-09-19 16:36] MED LIST changes: +ACET-2634 PO
--- NOTE | 2022-09-19 16:40 | NUR ---
Patient triaged and placed in waiting room. VSS and patient appears in no acute distress at this time. Accompanied by self, awaiting available bed, and MD notified of need for MSE.
--- NOTE | 2022-09-19 16:42 | NUR ---
Pt brought by self, A&Ox4, pt presents with chest waall pain, R shoulder, R rib pain after falling while walking the dog few days ago, pt ambulatory, skin pink and warm, cap refill <3, VSS, respirations even and unlabored, will cont to monitor.
[2022-09-19 16:43] VITALS: BP_SYST 180
--- NOTE | 2022-09-19 16:50 | NUR ---
EKG done and given to the doctor, no new orders received.
--- NOTE | 2022-09-19 17:53 | NUR ---
PT DEMANDING TO SPEAK TO CHARGE NURSE, PT IS COMPLAINING ABOUT NOT GIVEN NARCOTIC SHOT, PT HAS RECENTLY TAKEN 2 PERCOCETS. PT DEMANDING STRONG MEDICINE, DR REECE OFFERED TYLENOL OR MOTRIN. EXPLAINED TO PT THAT PERCOCET IS A STRONG MEDICATION AND TO PILE ANOTHER NARCOTIC ON TOP OF IT CAN BE DANGEROUS. PT DEMANDING MEDICATION.
--- NOTE | 2022-09-19 18:10 | NUR ---
Pt c/o chest pain, requesting pain medications, Dr Garcia notified , pt VSS,
--- NOTE | 2022-09-19 19:12 | NUR ---
SPOKE WITH PTS MOTHER AND EXPLAINED THE SITUATION WITH HER, PTS MOTHER IS DEMANDING WE DO BLOOD WORK AND GIVE HER DAUGHTER DILAUDID OR MORPHINE. DR REECE OUT TO TRIAGE AREA TO SPEAK WITH PT ABOUT DISCHARGE.
--- NOTE | 2022-09-19 19:15 | NUR ---
Dr Garcia speaking with patient at this time
--- NOTE | 2022-09-19 20:00 | NUR ---
PT CONSTANTLY CALLING AND REQUESTING MORE PAIN MEDICATION, DR REECE OUT TO SPEAK WITH PT. PT HAVING MOTHER CALL ER OFTEN AND TELLING US TO GIVE DAUGHTER MORE MEDICATION.
--- NOTE | 2022-09-19 20:10 | NUR ---
UPON DISCHARGE, PT YELLING AT STAFF THAT WE ARE LIARS. VERY AGGRESSIVE VERBALLY TOWARDS STAFF AND DOCTOR. PT SIGNED DISCHARGE PAPERWORK AND DISCHARGED TO HOME. PT RECENTLY 09/14 FILLED PERCOCETS 120TABS, NO NEW PRESCRIPTIONS GIVEN.
--- NOTE | 2022-09-19 20:11 | NUR ---
PT REFUSED TO HAVE REPEAT VITALS DONE.
== END 2022-09-19 20:10 | disposition home or self-care (01) ==
LOC: SED 16:36
DX: S20.211A Contusion of right front wall of thorax, initial encounter (principal); S40.011A Contusion of right shoulder, initial encounter; S60.221A Contusion of right hand, initial encounter; E11.9 Type 2 diabetes mellitus without complications; K21.9 Gastro-esophageal reflux disease without esophagitis; Z88.1 Allergy status to other antibiotic agents; Z88.2 Allergy status to sulfonamides; Z88.6 Allergy status to analgesic agent; Z91.041 Radiographic dye allergy status; Z88.8 Allergy status to other drugs, medicaments and biological substances; Z79.899 Other long term (current) drug therapy; W54.1XXA Struck by dog, initial encounter; Y93.89 Activity, other specified; Y92.89 Other specified places as the place of occurrence of the external cause; Y99.8 Other external cause status
CPT/HCPCS: 71045; 71100; 73030; 74018; 93005; 99284

== ENCOUNTER 2023-08-09 17:53 | Emergency (ER) | payer MEDICAID ==
[~2023-08-09] VITALS: Ht 154.9 cm; Wt 86.2 kg
[~2023-08-09 17:53] MED LIST changes: +CLIN-142 PO; +HYDR-3917 PO; +ONDA-8 TL
[2023-08-09 18:01] VITALS: BP_SYST 125; PULSE 71; RESP 18; TEMP 98.3; O2SAT 95
[2023-08-09] MEDS ORDERED: MORPHINE 4 MG INJ. 4 MG/ML VIAL IM ONE (20:30)
[2023-08-09 21:45] VITALS: BP_SYST 125; PULSE 71; RESP 18; TEMP 98.3; O2SAT 95
== END 2023-08-09 21:45 | disposition home or self-care (01) ==
LOC: SED 17:53
DX: G89.29 Other chronic pain (principal); M54.50 Low back pain, unspecified; I10 Essential (primary) hypertension; E11.9 Type 2 diabetes mellitus without complications; E03.9 Hypothyroidism, unspecified; Z88.1 Allergy status to other antibiotic agents; Z88.8 Allergy status to other drugs, medicaments and biological substances; Z79.899 Other long term (current) drug therapy
CPT/HCPCS: 99283; 96372; J2270

== ENCOUNTER 2023-08-10 16:46 | Emergency (ER) | payer MEDICAID ==
[~2023-08-10] VITALS: Ht 154.9 cm; Wt 86.2 kg
[2023-08-10 17:13] VITALS: BP_SYST 120; PULSE 67; RESP 12; TEMP 97.7; O2SAT 98
[2023-08-10] MEDS ORDERED: KETOROLAC TROMETHAMINE 60 MG/2 ML VIAL IM ONE (17:30)
[2023-08-10] MEDS ORDERED: DIAZEPAM 5 MG TABLET (VALIUM) PO ONE (17:30)
[2023-08-10] MEDS ORDERED: MORPHINE 4 MG INJ. 4 MG/ML VIAL IVP ONE (17:45)
== END 2023-08-10 19:15 | disposition home or self-care (01) ==
LOC: SED 16:46
DX: M54.41 Lumbago with sciatica, right side (principal); I10 Essential (primary) hypertension; E11.9 Type 2 diabetes mellitus without complications; E03.9 Hypothyroidism, unspecified; F41.9 Anxiety disorder, unspecified; Z88.1 Allergy status to other antibiotic agents; Z88.8 Allergy status to other drugs, medicaments and biological substances; Z88.2 Allergy status to sulfonamides; Z79.899 Other long term (current) drug therapy
CPT/HCPCS: 99285; 72131; 76376; 96372; J2270; J1885

== ENCOUNTER 2023-11-21 05:08 | Inpatient (IN) | payer MEDICAID ==
[~2023-11-21] VITALS: Ht 154.9 cm; Wt 77.1 kg
[2023-11-21 05:10] VITALS: BP_SYST 147; PULSE 104; RESP 21; TEMP 97.6; O2SAT 96
[2023-11-21 06:07] LABS: BILIRUBIN,URINE NEGATIVE (NEGATIVE); BLOOD, URINE 1+ (NEGATIVE); CLARITY/URINE CLEAR (CLEAR); COLOR,URINE YELLOW (YELLOW); GLUCOSE,URINE NEGATIVE (NEGATIVE); KETONES,URINE NEGATIVE (NEGATIVE); LEUKOCYTE ESTERASE ,URINE 1+ (NEGATIVE); NITRITE, URINE NEGATIVE (NEGATIVE); PROTEIN URINE NEGATIVE (NEGATIVE); UROBILINOGEN,URINE 0.2 (0.2-1.0)
[2023-11-21] MEDS: LORazepam 2 MG/ML VIAL IVP ONE (06:39)
[2023-11-21] MEDS: LIDOCAINE PATCH 5% 1 EA TP ONE (06:46)
[2023-11-21] MEDS: MORPHINE 2 MG/ML INJ. SYRINGE IVP ONE (06:53)
[2023-11-21 07:07] LABS: BACTERIA,URINE FEW /HPF (None Seen); MUCUS,URINE 1+ /LPF (None Seen); OTHER CASTS, URINE WBC CASTS 1+ /LPF (None Seen)
[2023-11-21 07:24] LABS: INFLUENZA TYPE A Negative (NEGATIVE); INFLUENZA TYPE B NEGATIVE (NEGATIVE)
[2023-11-21 07:27] LABS: COVID19 ANTIGEN SOFIA FIA NEGATIVE (NEGATIVE)
[2023-11-21 07:47] LABS: ANION GAP 6 (5-15); CALCIUM 8.9 mg/dL (8.4-11.0); CARBON DIOXIDE 29 mmol/L (23-29); CHLORIDE 104 mmol/L (98-107); CREATININE 0.81 mg/dL (0.55-1.30); GFR AFRICAN AMERICAN 94 mL/min (>90); GLUCOSE 98 mg/dL (74-106); POTASSIUM 3.4 mmol/L (3.5-5.1); SODIUM SERUM 139 mmol/L (136-145); UREA NITROGEN, BLOOD 11 mg/dL (8-21)
[2023-11-21 07:50] LABS: GFR NON AFRICAN-AMERICAN 78 mL/min (>90)
[2023-11-21 07:54] LABS: ALANINE AMINOTRANSFERASE 19 U/L (12-78); ALBUMIN 3.6 g/dL (3.4-4.8); ASPARTATE AMINOTRANSFERASE 18 U/L (10-37); BILIRUBIN,DIRECT 0.1 mg/dL (0.0-0.3); LIPASE 29 U/L (16-77); TOTAL BILIRUBIN 0.3 mg/dL (0.0-1.0); TOTAL PROTEIN, SERUM 7.3 g/dL (6.4-8.3)
[2023-11-21 08:02] LABS: MEAN CORPUSCULAR HEMOGLOBIN 28 pg (27-31); MEAN CORPUSCULAR HGB CONC 34 % (32-36); MEAN CORPUSCULAR VOLUME 82 fL (79.0-98.0); RED CELL DISTRIBUTION WIDTH 14.5 % (9.0-15.0)
[2023-11-21 08:18] LABS: CORRECTED WHITE BLOOD COUNT 5.3 K/uL (4.5-11.0); NUCLEATED RED BLOOD CELLS 4.7 /100WBC (0.0-0.0); RED BLOOD CELL COUNT(AUTO) 4.67 MIL/uL (4.2-6.2); WHITE BLOOD COUNT (AUTO) 5.5 K/uL (4.8-10.8)
[2023-11-21 08:19] LABS: HEMATOCRIT 36.2 % (36-48); HEMOGLOBIN 12.9 g/dL (12.0-16.0)
[2023-11-21 08:20] LABS: BASOPHILS % (AUTO) 0.7 % (0.0-2.0); EOSINOPHILS % (AUTO) 5.1 % (0.0-4.0); LYMPHOCYTES # (AUTO) 1.7 K/uL (1.0-5.5); LYMPHOCYTES % (AUTO) 31.1 % (20.5-51.5); MONOCYTES % (AUTO) 8.1 % (1.7-9.3); PLATELET COUNT (AUTO) 287 K/uL (130-430)
[2023-11-21 08:21] LABS: EOSINOPHILS # (AUTO) 0.3 K/uL (0.0-0.4); MONOCYTES # (AUTO) 0.5 K/uL (0.0-1.0)
[2023-11-21] MEDS ORDERED: PIPERACILLIN/TAZOBACTAM 3.375 GM/VIAL (ZOSYN) IV ONE (08:39)
[2023-11-21] MEDS: MORPHINE 4 MG INJ. 4 MG/ML VIAL IVP ONE ×2 (08:49→12:04)
[2023-11-21] MEDS: POTASSIUM CHLORIDE 20 MEQ/PKT PACKET PO ONE (08:50)
[2023-11-21] MEDS: PIPERACILLIN/TAZO 3.375 GM in NS 50 ML IV ONE (08:50)
[2023-11-21] MEDS ORDERED: LORAZEPAM (11:46)
[2023-11-21] MEDS ORDERED: SEMA0.258 SUBCUT (11:46)
[2023-11-21] MEDS ORDERED: LEVO25TA7 PO (11:46)
[2023-11-21 12:59] VITALS: BP_SYST 111; PULSE 60; RESP 16; TEMP 98.3; O2SAT 94
[2023-11-21 16:00] VITALS: BP_SYST 124; PULSE 70; RESP 16; TEMP 98.3; O2SAT 95
[2023-11-21] MEDS ORDERED: ACETAMINOPHEN 500 MG TABLET PO PRN (16:00)
[2023-11-21] MEDS ORDERED: NALOXONE HCL 0.4 MG/ML AMP (NARCAN) IVP PRN ×3 (16:00→17:15)
[2023-11-21] MEDS ORDERED: HYDROcodone/ACETAMIN 5-325 MG TAB (NORCO/ VICODIN) PO PRN (16:00)
[2023-11-21] MEDS ORDERED: ACETAMINOPHEN 325 MG TABLET PO PRN ×2 (16:30)
[2023-11-21] MEDS ORDERED: ONDANSETRON HCL 4 MG/2 ML VIAL IVP PRN (16:45)
[2023-11-21] MEDS: PIPERACILLIN/TAZO 3.375/DEX-IS 50 ML IV SCH (17:44)
[2023-11-21] MEDS: D5/0.45 NS 1,000 ML IV SCH (17:45)
[2023-11-21] MEDS: MORPHINE 2 MG/ML INJ. SYRINGE IVP PRN (17:46)
[2023-11-21] MEDS ORDERED: BEN50 PO (19:32)
[2023-11-21 19:46] VITALS: BP_SYST 120; PULSE 72; RESP 14; TEMP 98.2; O2SAT 96
[2023-11-21] MEDS: BACLOFEN 10 MG TABLET PO SCH (19:54)
[2023-11-21] MEDS: LORazepam 1 MG TABLET PO PRN (19:54)
[2023-11-22] VITALS (7 sets, daily range): BP systolic 94–125; PULSE 59–66; RESP 16–20; TEMP 97–98.8; O2SAT 93–98
[2023-11-22 04:44] LABS: BASOPHILS % (AUTO) 0.4 % (0.0-2.0); EOSINOPHILS # (AUTO) 0.3 K/uL (0.0-0.4); EOSINOPHILS % (AUTO) 4.9 % (0.0-4.0); HEMATOCRIT 36.1 % (36-48); HEMOGLOBIN 12.1 g/dL (12.0-16.0); LYMPHOCYTES # (AUTO) 2.3 K/uL (1.0-5.5); LYMPHOCYTES % (AUTO) 39.8 % (20.5-51.5); MEAN CORPUSCULAR HEMOGLOBIN 28 pg (27-31); MEAN CORPUSCULAR HGB CONC 34 % (32-36); MEAN CORPUSCULAR VOLUME 82 fL (79.0-98.0); MONOCYTES # (AUTO) 0.5 K/uL (0.0-1.0); NEUTROPHILS # (AUTO) 2.6 K/uL (1.8-7.7); NEUTROPHILS % (AUTO) 45.9 % (40.0-70.0); PLATELET COUNT (AUTO) 289 K/uL (130-430); RED CELL DISTRIBUTION WIDTH 14.5 % (9.0-15.0); WHITE BLOOD COUNT (AUTO) 5.7 K/uL (4.8-10.8)
[2023-11-22 05:17] LABS: ALBUMIN 3.2 g/dL (3.4-4.8); CALCIUM 8.3 mg/dL (8.4-11.0); CREATININE 0.95 mg/dL (0.55-1.30); PHOSPHORUS 4.1 mg/dL (2.7-4.5); POTASSIUM 3.1 mmol/L (3.5-5.1); TOTAL BILIRUBIN 0.2 mg/dL (0.0-1.0); TOTAL PROTEIN, SERUM 6.7 g/dL (6.4-8.3)
[2023-11-22] MEDS: LEVOTHYROXINE SODIUM 0.025 MG TABLET PO SCH (05:55)
[2023-11-22] MEDS: POTASSIUM CHLORIDE 20 MEQ TABLET.ER PO ONE ×2 (08:49→12:06)
[2023-11-22] MEDS: PANTOPRAZOLE SODIUM 40 MG TAB PO SCH (08:56)
[2023-11-22] MEDS ORDERED: SERTRALINE HCL 50 MG TABLET PO SCH (09:00)
[2023-11-22] MEDS: LORazepam 1 MG TABLET PO ONE (10:50)
[2023-11-22] MEDS ORDERED: LIP10 PO (14:55)
[2023-11-22] MEDS ORDERED: PANT40TA45 PO (14:55)
[2023-11-22] MEDS: HYDROcodone/ACETAMIN 10-325 MG TAB PO PRN (15:09)
[2023-11-22] MEDS: DIPHENHYDRAMINE HCL 50 MG CAPSULE PO PRN (21:18)
[2023-11-23] VITALS: BP_SYST 124; PULSE 69; RESP 18; TEMP 97.1; O2SAT 97
[2023-11-23 05:22] LABS: BASOPHILS % (AUTO) 0.6 % (0.0-2.0); EOSINOPHILS # (AUTO) 0.2 K/uL (0.0-0.4); EOSINOPHILS % (AUTO) 4.1 % (0.0-4.0); HEMATOCRIT 35.3 % (36-48); HEMOGLOBIN 11.8 g/dL (12.0-16.0); LYMPHOCYTES # (AUTO) 2.3 K/uL (1.0-5.5); LYMPHOCYTES % (AUTO) 40.6 % (20.5-51.5); MEAN CORPUSCULAR HEMOGLOBIN 28 pg (27-31); MEAN CORPUSCULAR HGB CONC 34 % (32-36); MEAN CORPUSCULAR VOLUME 83 fL (79.0-98.0); MONOCYTES # (AUTO) 0.5 K/uL (0.0-1.0); MONOCYTES % (AUTO) 9.1 % (1.7-9.3); NEUTROPHILS # (AUTO) 2.6 K/uL (1.8-7.7); NEUTROPHILS % (AUTO) 45.6 % (40.0-70.0); PLATELET COUNT (AUTO) 262 K/uL (130-430); RED BLOOD CELL COUNT(AUTO) 4.27 MIL/uL (4.2-6.2); RED CELL DISTRIBUTION WIDTH 14.6 % (9.0-15.0); WHITE BLOOD COUNT (AUTO) 5.6 K/uL (4.8-10.8)
[2023-11-23 05:34] LABS: ERYTHROCYTE SEDIMENTATION RATE 10 MM/HR (0-20)
[2023-11-23 05:48] LABS: CALCIUM 8.3 mg/dL (8.4-11.0); CREATININE 0.83 mg/dL (0.55-1.30); POTASSIUM 3.7 mmol/L (3.5-5.1)
[2023-11-23 08:13] VITALS: BP_SYST 119; PULSE 64; RESP 18; TEMP 98.2; O2SAT 97
[2023-11-23] MEDS: LORazepam 1 MG TABLET PO SCH (08:28)
[2023-11-23 11:02] VITALS: BP_SYST 103; PULSE 78; RESP 16; TEMP 97.1; O2SAT 95
[2023-11-23] MEDS: NORMAL SALINE 5 ML DISP.SYRIN IVF SCH (11:35)
[2023-11-23 15:01] VITALS: BP_SYST 124; PULSE 73; RESP 16; TEMP 97.2; O2SAT 97
[2023-11-23 20:10] VITALS: BP_SYST 130; PULSE 66; RESP 18; TEMP 97; O2SAT 96; O2SAT 98
[2023-11-24] VITALS: BP_SYST 120; PULSE 65; RESP 18; TEMP 96.1; O2SAT 96
[2023-11-24 05:24] LABS: ERYTHROCYTE SEDIMENTATION RATE 6 MM/HR (0-20)
[2023-11-24 05:35] LABS: BASOPHILS % (AUTO) 0.5 % (0.0-2.0); EOSINOPHILS # (AUTO) 0.4 K/uL (0.0-0.4); EOSINOPHILS % (AUTO) 5.4 % (0.0-4.0); HEMATOCRIT 37.8 % (36-48); HEMOGLOBIN 12.7 g/dL (12.0-16.0); LYMPHOCYTES # (AUTO) 2.7 K/uL (1.0-5.5); LYMPHOCYTES % (AUTO) 40.6 % (20.5-51.5); MEAN CORPUSCULAR HEMOGLOBIN 28 pg (27-31); MEAN CORPUSCULAR HGB CONC 34 % (32-36); MEAN CORPUSCULAR VOLUME 83 fL (79.0-98.0); MONOCYTES # (AUTO) 0.5 K/uL (0.0-1.0); MONOCYTES % (AUTO) 7.6 % (1.7-9.3); NEUTROPHILS % (AUTO) 45.9 % (40.0-70.0); PLATELET COUNT (AUTO) 306 K/uL (130-430); RED BLOOD CELL COUNT(AUTO) 4.57 MIL/uL (4.2-6.2); RED CELL DISTRIBUTION WIDTH 14.3 % (9.0-15.0); WHITE BLOOD COUNT (AUTO) 6.6 K/uL (4.8-10.8)
[2023-11-24 06:11] LABS: ALBUMIN 3.3 g/dL (3.4-4.8); CALCIUM 8.5 mg/dL (8.4-11.0); CREATININE 0.83 mg/dL (0.55-1.30); POTASSIUM 3.4 mmol/L (3.5-5.1); TOTAL BILIRUBIN 0.2 mg/dL (0.0-1.0)
[2023-11-24 08:00] VITALS: BP_SYST 117; PULSE 63; RESP 18; TEMP 98.9; O2SAT 93
[2023-11-24 10:36] VITALS: O2SAT 93
[2023-11-24 12:00] VITALS: BP_SYST 113; PULSE 62; RESP 17; TEMP 97.6; O2SAT 96
[2023-11-24 16:04] VITALS: BP_SYST 111; PULSE 74; RESP 18; TEMP 97.6; O2SAT 99
== END 2023-11-24 20:30 | disposition home or self-care (01) | DRG 463 ==
LOC: SED 05:08 → SMU 11:29 → STU 11-23 23:03 → SMU 11-24 04:59
PROVIDERS: ADMIT Preventive Medicine Preventive Medicine/Occupational Environmental Medicine; ATTEND Preventive Medicine Preventive Medicine/Occupational Environmental Medicine
DX: N12 Tubulo-interstitial nephritis, not specified as acute or chronic (principal); E88.09 Other disorders of plasma-protein metabolism, not elsewhere classified; E03.9 Hypothyroidism, unspecified; E11.65 Type 2 diabetes mellitus with hyperglycemia; D64.9 Anemia, unspecified; E78.5 Hyperlipidemia, unspecified; R07.89 Other chest pain; E83.52 Hypercalcemia; E87.6 Hypokalemia; Z20.822 Contact with and (suspected) exposure to COVID-19; K21.9 Gastro-esophageal reflux disease without esophagitis; F41.9 Anxiety disorder, unspecified; I10 Essential (primary) hypertension; F39 Unspecified mood [affective] disorder; G89.29 Other chronic pain; Z90.49 Acquired absence of other specified parts of digestive tract; Z88.9 Allergy status to unspecified drugs, medicaments and biological substances; Z79.899 Other long term (current) drug therapy; Z87.442 Personal history of urinary calculi
CPT/HCPCS: 36415; 71045; 80048; 80053; 80076; 81000; 81001; 81015; 83605; 83690; 83735; 83880; 84100; 84484; 85007; 85025; 85027; 85379; 85651; 87040; 87086; 93005; 99285; G0378; J2060; J2270; J2543; Q0163

== ENCOUNTER 2023-12-16 11:26 | Inpatient (IN) | payer MEDICAID ==
[~2023-12-16] VITALS: Ht 154.9 cm; Wt 74.8 kg
[~2023-12-16 11:26] MED LIST changes: -ACET-2634 PO; -BACL10TA PO; +BEN50 PO; -CLIN-142 PO; -HYDR-3917 PO; +LEVO25TA7 PO; +LIP10 PO; -ONDA-8 TL; -PANT20TA2 PO; +PANT40TA45 PO; +SEMA0.258 SUBCUT
[2023-12-16 11:44] VITALS: BP_SYST 135; PULSE 80; RESP 18; TEMP 97.9; O2SAT 94
[2023-12-16 12:39] LABS: BILIRUBIN,URINE 1+ (NEGATIVE); BLOOD, URINE 1+ (NEGATIVE); CLARITY/URINE SL CLOUDY (CLEAR); COLOR,URINE YELLOW (YELLOW); GLUCOSE,URINE NEGATIVE (NEGATIVE); KETONES,URINE TRACE (NEGATIVE); LEUKOCYTE ESTERASE ,URINE 1+ (NEGATIVE); NITRITE, URINE NEGATIVE (NEGATIVE); PROTEIN URINE NEGATIVE (NEGATIVE); UROBILINOGEN,URINE 0.2 (0.2-1.0)
[2023-12-16] MEDS: MORPHINE 4 MG INJ. 4 MG/ML VIAL IVP ONE ×3 (12:45→16:55)
[2023-12-16] MEDS: NACL 0.9% 1,000 ML IV ONE (12:45)
[2023-12-16 12:46] LABS: BASOPHILS % (AUTO) 0.5 % (0.0-2.0); EOSINOPHILS # (AUTO) 0.4 K/uL (0.0-0.4); HEMOGLOBIN 12.8 g/dL (12.0-16.0); LYMPHOCYTES # (AUTO) 2.1 K/uL (1.0-5.5); LYMPHOCYTES % (AUTO) 35.1 % (20.5-51.5); MEAN CORPUSCULAR HEMOGLOBIN 28 pg (27-31); MEAN CORPUSCULAR HGB CONC 34 % (32-36); MEAN CORPUSCULAR VOLUME 83 fL (79.0-98.0); MONOCYTES # (AUTO) 0.5 K/uL (0.0-1.0); MONOCYTES % (AUTO) 7.7 % (1.7-9.3); NEUTROPHILS % (AUTO) 49.7 % (40.0-70.0); PLATELET COUNT (AUTO) 269 K/uL (130-430); RED BLOOD CELL COUNT(AUTO) 4.58 MIL/uL (4.2-6.2); RED CELL DISTRIBUTION WIDTH 14.4 % (9.0-15.0); WHITE BLOOD COUNT (AUTO) 6.1 K/uL (4.8-10.8)
[2023-12-16] MEDS: ONDANSETRON HCL 4 MG/2 ML VIAL IVP ONE (12:46)
[2023-12-16 12:58] LABS: CALCIUM 8.4 mg/dL (8.4-11.0); CREATININE 0.85 mg/dL (0.55-1.30); POTASSIUM 3.7 mmol/L (3.5-5.1)
[2023-12-16 13:02] LABS: ALBUMIN 3.6 g/dL (3.4-4.8); BILIRUBIN,DIRECT 0.1 mg/dL (0.0-0.3); TOTAL BILIRUBIN 0.2 mg/dL (0.0-1.0); TOTAL PROTEIN, SERUM 7.5 g/dL (6.4-8.3)
[2023-12-16 13:07] LABS: BACTERIA,URINE MANY /HPF (None Seen)
[2023-12-16 13:08] LABS: MUCUS,URINE 1+ /LPF (None Seen)
[2023-12-16] MEDS: cefTRIAXone 1 GM IVPB PREMIX 50 ML IV ONE (15:50)
[2023-12-16] MEDS: DIPHENHYDRAMINE INJ 50 MG/ML VIAL IVP ONE (15:50)
[2023-12-16] MEDS ORDERED: HYDROcodone/ACETAMIN 10-325 MG TAB PO PRN (18:15)
[2023-12-16] MEDS ORDERED: ACETAMINOPHEN 325 MG TABLET PO PRN ×2 (18:15)
[2023-12-16] MEDS ORDERED: HYDROcodone/ACETAMIN 5-325 MG TAB (NORCO/ VICODIN) PO PRN (18:15)
[2023-12-16] MEDS ORDERED: OXYCODONE/ACETAMINOPHEN 5-325 TABLET PO PRN (19:30)
[2023-12-16] MEDS: MORPHINE 4 MG INJ. 4 MG/ML VIAL IVP PRN (19:43)
[2023-12-16 21:00] VITALS: BP_SYST 125; PULSE 75; RESP 18; TEMP 97.3
[2023-12-16] MEDS: SENNOSIDES/DOCUSATE SODIUM 1 TAB TABLET(SENOKOT-S) PO SCH (21:00)
[2023-12-16] MEDS: CYCLOBENZAPRINE HCL 10 MG TABLET (FLEXERIL) PO SCH (21:00)
[2023-12-16] MEDS: ATORVASTATIN 10 MG TABLET PO SCH (21:00)
[2023-12-16] MEDS: OXYCODONE/ACETAMINOPHEN *10*mg/325 mg TABLET PO PRN (21:49)
[2023-12-16] MEDS ORDERED: ZOLPIDEM TARTRATE 5 MG TABLET PO PRN (22:00)
[2023-12-16] MEDS: HEPARIN SODIUM,PORCINE 5,000 UNITS/ML VIAL SUBCUT SCH (22:00)
[2023-12-17] MEDS: LORazepam 2 MG/ML VIAL IVP PRN (01:19)
[2023-12-17] MEDS: LEVOTHYROXINE SODIUM 0.025 MG TABLET PO SCH (06:42)
[2023-12-17 08:15] LABS: BASOPHILS % (AUTO) 0.7 % (0.0-2.0); EOSINOPHILS # (AUTO) 0.6 K/uL (0.0-0.4); EOSINOPHILS % (AUTO) 12.1 % (0.0-4.0); HEMOGLOBIN 11.7 g/dL (12.0-16.0); LYMPHOCYTES # (AUTO) 2.4 K/uL (1.0-5.5); MEAN CORPUSCULAR HEMOGLOBIN 28 pg (27-31); MEAN CORPUSCULAR HGB CONC 33 % (32-36); MEAN CORPUSCULAR VOLUME 83 fL (79.0-98.0); MONOCYTES # (AUTO) 0.4 K/uL (0.0-1.0); MONOCYTES % (AUTO) 7.7 % (1.7-9.3); NEUTROPHILS # (AUTO) 1.7 K/uL (1.8-7.7); NEUTROPHILS % (AUTO) 32.5 % (40.0-70.0); PLATELET COUNT (AUTO) 253 K/uL (130-430); RED BLOOD CELL COUNT(AUTO) 4.24 MIL/uL (4.2-6.2); RED CELL DISTRIBUTION WIDTH 14.4 % (9.0-15.0); WHITE BLOOD COUNT (AUTO) 5.2 K/uL (4.8-10.8)
[2023-12-17] MEDS: PANTOPRAZOLE SODIUM 40 MG TAB PO SCH (08:41)
[2023-12-17 08:48] LABS: CALCIUM 8.2 mg/dL (8.4-11.0); CREATININE 0.78 mg/dL (0.55-1.30); POTASSIUM 3.5 mmol/L (3.5-5.1)
[2023-12-17] MEDS: ONDANSETRON HCL 4 MG/2 ML VIAL IVP PRN (09:08)
[2023-12-17 09:14] LABS: ERYTHROCYTE SEDIMENTATION RATE 8 MM/HR (0-20)
[2023-12-17 09:30] VITALS: BP_SYST 137; PULSE 78; RESP 14; TEMP 98.8; O2SAT 97
[2023-12-17] MEDS: DIPHENHYDRAMINE INJ 50 MG/ML VIAL IVP PRN (12:55)
[2023-12-17 12:58] VITALS: BP_SYST 129; PULSE 82; RESP 14; TEMP 99; O2SAT 99
[2023-12-17] MEDS: cefTRIAXone 1 GM in D5W 50 ML IV SCH (13:24)
[2023-12-17 16:00] VITALS: BP_SYST 114; PULSE 83; RESP 17; TEMP 97.8; O2SAT 95
[2023-12-17] MEDS: 0.45% NACL 1,000 ML IV SCH (16:58)
[2023-12-17 19:00] VITALS: O2SAT 97
[2023-12-17 20:00] VITALS: BP_SYST 98; PULSE 68; RESP 18; TEMP 96.8; O2SAT 100
[2023-12-18 00:48] VITALS: BP_SYST 113; PULSE 74; RESP 16; TEMP 97.7; O2SAT 95
[2023-12-18 04:00] VITALS: RESP 18
[2023-12-18] MEDS ORDERED: NITR-85 PO (07:28)
[2023-12-18 09:05] VITALS: BP_SYST 107; PULSE 70; RESP 15; TEMP 97.1; O2SAT 98
[2023-12-18] MEDS ORDERED: HYDR-3917 PO (11:03)
[2023-12-18] MEDS ORDERED: LIDOCAINE TOPICAL OINT 5%, 35 GM TP PRN (11:45)
[2023-12-18 12:23] VITALS: BP_SYST 123; PULSE 83; RESP 18; TEMP 98.5; O2SAT 97
[2023-12-18] MEDS: OXYCODONE/ACETAMINOPHEN 5-325 TABLET PO PRN (12:37)
[2023-12-18] MEDS: POTASSIUM CHLORIDE 20 MEQ TABLET.ER PO ONE (14:46)
[2023-12-18 15:23] VITALS: BP_SYST 133; PULSE 77; RESP 17; TEMP 98; O2SAT 94
[2023-12-18 15:33] VITALS: BP_SYST 133; PULSE 77; RESP 17; TEMP 98.1; O2SAT 94
== END 2023-12-18 16:50 | disposition home health service (06) | DRG 347 ==
LOC: SED 11:26 → SMU 18:09
PROVIDERS: ADMIT Internal Medicine; ATTEND Internal Medicine
DX: M54.50 Low back pain, unspecified (principal); E11.9 Type 2 diabetes mellitus without complications; M51.36 Other intervertebral disc degeneration, lumbar region; I10 Essential (primary) hypertension; K21.9 Gastro-esophageal reflux disease without esophagitis; N39.0 Urinary tract infection, site not specified; Z88.2 Allergy status to sulfonamides; Z88.1 Allergy status to other antibiotic agents; Z88.8 Allergy status to other drugs, medicaments and biological substances; Z79.899 Other long term (current) drug therapy; Z90.49 Acquired absence of other specified parts of digestive tract; Z98.891 History of uterine scar from previous surgery
CPT/HCPCS: 36415; 72131; 72148; 80048; 80076; 81000; 81001; 81015; 82948; 83605; 83690; 84132; 85025; 85651; 87040; 87081; 87086; 87186; 93005; 97116-GP; 97530-GP; 99285; J0696; J1200; J2060; J2270; J2405; J7060

== ENCOUNTER 2024-05-06 13:41 | Emergency (ER) | payer MEDICAID ==
[~2024-05-06] VITALS: Ht 154.9 cm; Wt 65.8 kg
[~2024-05-06 13:41] MED LIST changes: +ATOR-449 PO; +HYDR-3917 PO; -LIP10 PO; +NITR-85 PO
[2024-05-06 13:58] VITALS: BP_SYST 127; PULSE 98; RESP 16; TEMP 97.5; O2SAT 98
[2024-05-06 14:32] LABS: BILIRUBIN,URINE NEGATIVE (NEGATIVE); BLOOD, URINE 1+ (NEGATIVE); CLARITY/URINE CLEAR (CLEAR); COLOR,URINE YELLOW (YELLOW); GLUCOSE,URINE NEGATIVE (NEGATIVE); KETONES,URINE 1+ (NEGATIVE); LEUKOCYTE ESTERASE ,URINE TRACE (NEGATIVE); NITRITE, URINE NEGATIVE (NEGATIVE); PROTEIN URINE NEGATIVE (NEGATIVE); UROBILINOGEN,URINE 0.2 (0.2-1.0)
[2024-05-06 14:54] LABS: BACTERIA,URINE RARE /HPF (None Seen); MUCUS,URINE None Seen /LPF (None Seen); RBC,URINE 0-3 /HPF (0-3)
[2024-05-06] MEDS: NACL 0.9% 1,000 ML IV ONE (14:55)
[2024-05-06 15:05] LABS: BASOPHILS # (AUTO) 0.1 K/uL (0.0-0.2); BASOPHILS % (AUTO) 1.1 % (0.0-2.0); EOSINOPHILS # (AUTO) 0.1 K/uL (0.0-0.4); HEMOGLOBIN 12.7 g/dL (12.0-16.0); LYMPHOCYTES % (AUTO) 28.2 % (20.5-51.5); MEAN CORPUSCULAR HEMOGLOBIN 29 pg (27-31); MEAN CORPUSCULAR HGB CONC 34 % (32-36); MEAN CORPUSCULAR VOLUME 84 fL (79.0-98.0); MONOCYTES # (AUTO) 0.5 K/uL (0.0-1.0); MONOCYTES % (AUTO) 6.7 % (1.7-9.3); NEUTROPHILS # (AUTO) 4.5 K/uL (1.8-7.7); PLATELET COUNT (AUTO) 314 K/uL (130-430); RED BLOOD CELL COUNT(AUTO) 4.42 MIL/uL (4.2-6.2); RED CELL DISTRIBUTION WIDTH 14.6 % (9.0-15.0); WHITE BLOOD COUNT (AUTO) 7.2 K/uL (4.8-10.8)
[2024-05-06] MEDS: PANTOPRAZOLE SODIUM 40 MG/VIAL (PROTONIX) IVP ONE (15:09)
[2024-05-06] MEDS: ONDANSETRON HCL 4 MG/2 ML VIAL IVP ONE ×2 (15:10→17:05)
[2024-05-06 15:13] LABS: ALBUMIN 4.1 g/dL (3.4-4.8); BILIRUBIN,DIRECT 0.1 mg/dL (0.0-0.3); CALCIUM 9.2 mg/dL (8.4-11.0); CREATININE 0.87 mg/dL (0.55-1.30); POTASSIUM 3.6 mmol/L (3.5-5.1); TOTAL BILIRUBIN 0.4 mg/dL (0.0-1.0)
[2024-05-06] MEDS: MORPHINE 4 MG INJ. 4 MG/ML VIAL IVP ONE (15:13)
[2024-05-06 16:26] LABS: INFLUENZA TYPE A Negative (NEGATIVE); INFLUENZA TYPE B NEGATIVE (NEGATIVE)
[2024-05-06] MEDS: DOXYCYCLINE HYCLATE 100 MG TABLET PO ONE (16:31)
[2024-05-06] MEDS ORDERED: OMEP40CA20 PO (17:07)
[2024-05-06] MEDS ORDERED: DOXY100T2 PO (17:07)
[2024-05-06] MEDS ORDERED: ONDA-8 TL (17:07)
[2024-05-06] MEDS: MORPHINE 2 MG/ML INJ. SYRINGE IVP ONE (17:34)
[2024-05-06 17:49] VITALS: BP_SYST 137; PULSE 84; RESP 18; TEMP 97.9; O2SAT 97
== END 2024-05-06 17:47 | disposition home or self-care (01) ==
LOC: SED 13:41
DX: N39.0 Urinary tract infection, site not specified (principal); R11.2 Nausea with vomiting, unspecified; R19.7 Diarrhea, unspecified; K21.9 Gastro-esophageal reflux disease without esophagitis; E11.9 Type 2 diabetes mellitus without complications; I10 Essential (primary) hypertension; Z88.2 Allergy status to sulfonamides; Z88.5 Allergy status to narcotic agent; Z88.6 Allergy status to analgesic agent; Z88.8 Allergy status to other drugs, medicaments and biological substances; Z91.041 Radiographic dye allergy status; Z20.822 Contact with and (suspected) exposure to COVID-19
CPT/HCPCS: 99284; 96374; 96375; 96361; 87426; 80076; 80048; 81001; 83690; 85025; 36415; 93005; 96376; 87804 ×2; 81000; 81015; J2405; J2470; J2270 ×2; J7030

== ENCOUNTER 2024-05-07 22:13 | Emergency (ER) | payer MEDICAID ==
[~2024-05-07] VITALS: Ht 154.9 cm; Wt 63.5 kg
[~2024-05-07 22:13] MED LIST changes: +DOXY100T2 PO; +OMEP40CA20 PO; +ONDA-8 TL
[2024-05-07 23:15] VITALS: BP_SYST 149; PULSE 96; RESP 20; TEMP 97.8; O2SAT 98
[2024-05-08 03:48] LABS: ALBUMIN 3.8 g/dL (3.4-4.8); BILIRUBIN,DIRECT 0.1 mg/dL (0.0-0.3); CALCIUM 9.2 mg/dL (8.4-11.0); CREATININE 0.79 mg/dL (0.55-1.30); TOTAL BILIRUBIN 0.3 mg/dL (0.0-1.0); TOTAL PROTEIN, SERUM 7.3 g/dL (6.4-8.3)
[2024-05-08 03:55] LABS: BASOPHILS # (AUTO) 0.1 K/uL (0.0-0.2); BASOPHILS % (AUTO) 0.8 % (0.0-2.0); EOSINOPHILS # (AUTO) 0.1 K/uL (0.0-0.4); EOSINOPHILS % (AUTO) 2.2 % (0.0-4.0); HEMATOCRIT 35.5 % (36-48); HEMOGLOBIN 11.9 g/dL (12.0-16.0); LYMPHOCYTES # (AUTO) 2.8 K/uL (1.0-5.5); LYMPHOCYTES % (AUTO) 42.5 % (20.5-51.5); MEAN CORPUSCULAR HEMOGLOBIN 28 pg (27-31); MEAN CORPUSCULAR HGB CONC 34 % (32-36); MEAN CORPUSCULAR VOLUME 85 fL (79.0-98.0); MONOCYTES # (AUTO) 0.5 K/uL (0.0-1.0); MONOCYTES % (AUTO) 8.2 % (1.7-9.3); NEUTROPHILS # (AUTO) 3.1 K/uL (1.8-7.7); NEUTROPHILS % (AUTO) 46.3 % (40.0-70.0); PLATELET COUNT (AUTO) 316 K/uL (130-430); RED BLOOD CELL COUNT(AUTO) 4.18 MIL/uL (4.2-6.2); RED CELL DISTRIBUTION WIDTH 14.9 % (9.0-15.0); WHITE BLOOD COUNT (AUTO) 6.6 K/uL (4.8-10.8)
[2024-05-08] MEDS: NACL 0.9% 1,000 ML IV ONE (03:56)
[2024-05-08] MEDS: ONDANSETRON HCL 4 MG/2 ML VIAL IVP ONE (03:59)
[2024-05-08] MEDS: MORPHINE 4 MG INJ. 4 MG/ML VIAL IVP ONE ×2 (04:00→07:20)
[2024-05-08 04:11] LABS: BILIRUBIN,URINE NEGATIVE (NEGATIVE); CLARITY/URINE CLEAR (CLEAR); COLOR,URINE YELLOW (YELLOW); GLUCOSE,URINE NEGATIVE (NEGATIVE); KETONES,URINE NEGATIVE (NEGATIVE); LEUKOCYTE ESTERASE ,URINE NEGATIVE (NEGATIVE); NITRITE, URINE NEGATIVE (NEGATIVE); PROTEIN URINE NEGATIVE (NEGATIVE); UROBILINOGEN,URINE 0.2 (0.2-1.0)
[2024-05-08 04:12] LABS: POTASSIUM 2.9 mmol/L (3.5-5.1)
[2024-05-08 04:55] LABS: BLOOD, URINE TRACE (NEGATIVE)
[2024-05-08 04:56] LABS: BACTERIA,URINE None Seen /HPF (None Seen); MUCUS,URINE 1+ /LPF (None Seen); WBC,URINE 0-3 /HPF (0-3)
[2024-05-08] MEDS: POTASSIUM CHLORIDE 20 MEQ TABLET.ER PO ONE (05:10)
[2024-05-08] MEDS ORDERED: OXYC-128 PO (07:07)
[2024-05-08 08:33] VITALS: BP_SYST 154; PULSE 80; RESP 22; TEMP 97.9; O2SAT 97
== END 2024-05-08 08:29 | disposition home or self-care (01) ==
LOC: SED 22:13
DX: R10.9 Unspecified abdominal pain (principal); E11.9 Type 2 diabetes mellitus without complications; K21.9 Gastro-esophageal reflux disease without esophagitis; I10 Essential (primary) hypertension; E03.9 Hypothyroidism, unspecified; Z88.2 Allergy status to sulfonamides; Z88.5 Allergy status to narcotic agent; Z88.6 Allergy status to analgesic agent; Z88.8 Allergy status to other drugs, medicaments and biological substances; Z91.041 Radiographic dye allergy status
CPT/HCPCS: 99285; 80076; 80048; 81001; 82150; 83690; 85025; 36415; 81000; 74176; 96374; 96361; 96375; 96376; 81015; J2405; J2270; J7030; 93005

== ENCOUNTER 2024-06-03 17:56 | Emergency (ER) | payer MEDICAID ==
[~2024-06-03] VITALS: Ht 154.9 cm; Wt 68.0 kg
[~2024-06-03 17:56] MED LIST changes: +OXYC-128 PO
[2024-06-03 18:08] VITALS: BP_SYST 140; PULSE 98; RESP 18; TEMP 97.5; O2SAT 97
[2024-06-03] MEDS: NACL 0.9% 1,000 ML IV ONE (19:18)
[2024-06-03] MEDS: ONDANSETRON HCL 4 MG/2 ML VIAL IVP ONE ×2 (19:19→22:57)
[2024-06-03] MEDS: MORPHINE 4 MG INJ. 4 MG/ML VIAL IM ONE (19:20)
[2024-06-03 19:30] LABS: BASOPHILS % (AUTO) 0.4 % (0.0-2.0); EOSINOPHILS % (AUTO) 0.5 % (0.0-4.0); HEMATOCRIT 41.1 % (36-48); HEMOGLOBIN 14.1 g/dL (12.0-16.0); LYMPHOCYTES # (AUTO) 1.7 K/uL (1.0-5.5); MEAN CORPUSCULAR HEMOGLOBIN 29 pg (27-31); MEAN CORPUSCULAR HGB CONC 34 % (32-36); MEAN CORPUSCULAR VOLUME 84 fL (79.0-98.0); MONOCYTES # (AUTO) 0.4 K/uL (0.0-1.0); MONOCYTES % (AUTO) 6.1 % (1.7-9.3); NEUTROPHILS # (AUTO) 5.1 K/uL (1.8-7.7); PLATELET COUNT (AUTO) 296 K/uL (130-430); WHITE BLOOD COUNT (AUTO) 7.2 K/uL (4.8-10.8)
[2024-06-03 19:44] LABS: ALANINE AMINOTRANSFERASE 32 U/L (12-78); ALBUMIN 4.3 g/dL (3.4-4.8); ANION GAP 9 (5-15); ASPARTATE AMINOTRANSFERASE 21 U/L (10-37); CALCIUM 9.6 mg/dL (8.4-11.0); CARBON DIOXIDE 28 mmol/L (23-29); CHLORIDE 102 mmol/L (98-107); CREATININE 0.86 mg/dL (0.55-1.30); GFR AFRICAN AMERICAN 88 mL/min (>90); GLUCOSE 94 mg/dL (74-106); POTASSIUM 3.9 mmol/L (3.5-5.1); SODIUM SERUM 139 mmol/L (136-145); TOTAL BILIRUBIN 0.4 mg/dL (0.0-1.0); TOTAL PROTEIN, SERUM 8.4 g/dL (6.4-8.3); UREA NITROGEN, BLOOD 14 mg/dL (8-21)
[2024-06-03 19:45] LABS: GFR NON AFRICAN-AMERICAN 73 mL/min (>90)
[2024-06-03 19:47] LABS: BILIRUBIN,DIRECT 0.1 mg/dL (0.0-0.3); LIPASE 34 U/L (16-77)
[2024-06-03 20:08] LABS: BILIRUBIN,URINE NEGATIVE (NEGATIVE); BLOOD, URINE 1+ (NEGATIVE); CLARITY/URINE CLEAR (CLEAR); COLOR,URINE YELLOW (YELLOW); GLUCOSE,URINE NEGATIVE (NEGATIVE); KETONES,URINE 1+ (NEGATIVE); LEUKOCYTE ESTERASE ,URINE TRACE (NEGATIVE); NITRITE, URINE NEGATIVE (NEGATIVE); PH,URINE 7.5 (5.0-8.0); PROTEIN URINE NEGATIVE (NEGATIVE); UROBILINOGEN,URINE 0.2 (0.2-1.0)
[2024-06-03] MEDS: MORPHINE 4 MG INJ. 4 MG/ML VIAL IVP ONE ×2 (20:14→22:58)
[2024-06-03 20:20] LABS: BACTERIA,URINE RARE /HPF (None Seen); MUCUS,URINE None Seen /LPF (None Seen); RBC,URINE NONE SEEN /HPF (0-3)
[2024-06-03] MEDS: ACETAMINOPHEN 500 MG TABLET PO ONE (20:31)
[2024-06-03] MEDS: DIPHENHYDRAMINE INJ 50 MG/ML VIAL IVP ONE ×3 (21:19→22:12)
[2024-06-03] MEDS: cefTRIAXone 1 GM VIAL IV ONE (21:20)
[2024-06-03] MEDS ORDERED: CEPH250C PO (22:43)
[2024-06-03 23:19] VITALS: BP_SYST 114; PULSE 83; RESP 18; TEMP 97.8; O2SAT 95
== END 2024-06-03 23:10 | disposition home or self-care (01) ==
LOC: SED 17:56
DX: N39.0 Urinary tract infection, site not specified (principal); R00.2 Palpitations; R00.0 Tachycardia, unspecified; R11.0 Nausea; E11.9 Type 2 diabetes mellitus without complications; I10 Essential (primary) hypertension; E03.9 Hypothyroidism, unspecified; F41.9 Anxiety disorder, unspecified; K21.9 Gastro-esophageal reflux disease without esophagitis; Z90.49 Acquired absence of other specified parts of digestive tract; Z88.1 Allergy status to other antibiotic agents; Z88.2 Allergy status to sulfonamides; Z88.6 Allergy status to analgesic agent; Z91.041 Radiographic dye allergy status; Z88.8 Allergy status to other drugs, medicaments and biological substances; Z79.85 Long-term (current) use of injectable non-insulin antidiabetic drugs; Z79.899 Other long term (current) drug therapy; Z79.2 Long term (current) use of antibiotics
CPT/HCPCS: 99284; 96365; 96375; 96361; 80076; 80048; 81001; 83690; 83735; 85025; 87040; 84484; 36415; 93005; 96376; J0696; J1200; J2405; J2270; J7030; 81000; 81015

== ENCOUNTER 2024-06-04 19:51 | Emergency (ER) | payer MEDICAID ==
[~2024-06-04] VITALS: Ht 154.9 cm; Wt 63.5 kg
[~2024-06-04 19:51] MED LIST changes: +CEPH250C PO
[2024-06-04 20:33] VITALS: BP_SYST 136; PULSE 92; RESP 20; TEMP 98; O2SAT 98
[2024-06-04 21:33] LABS: BASOPHILS % (AUTO) 0.7 % (0.0-2.0); EOSINOPHILS # (AUTO) 0.1 K/uL (0.0-0.4); EOSINOPHILS % (AUTO) 1.1 % (0.0-4.0); HEMATOCRIT 38.2 % (36-48); HEMOGLOBIN 13.1 g/dL (12.0-16.0); LYMPHOCYTES % (AUTO) 34.9 % (20.5-51.5); MEAN CORPUSCULAR HEMOGLOBIN 29 pg (27-31); MEAN CORPUSCULAR HGB CONC 34 % (32-36); MEAN CORPUSCULAR VOLUME 84 fL (79.0-98.0); MONOCYTES # (AUTO) 0.4 K/uL (0.0-1.0); MONOCYTES % (AUTO) 7.1 % (1.7-9.3); NEUTROPHILS # (AUTO) 3.3 K/uL (1.8-7.7); NEUTROPHILS % (AUTO) 56.2 % (40.0-70.0); PLATELET COUNT (AUTO) 305 K/uL (130-430); RED BLOOD CELL COUNT(AUTO) 4.53 MIL/uL (4.2-6.2); RED CELL DISTRIBUTION WIDTH 14.8 % (9.0-15.0); WHITE BLOOD COUNT (AUTO) 5.8 K/uL (4.8-10.8)
[2024-06-04 21:42] LABS: ALANINE AMINOTRANSFERASE 24 U/L (12-78); ANION GAP 7 (5-15); ASPARTATE AMINOTRANSFERASE 15 U/L (10-37); CALCIUM 9.1 mg/dL (8.4-11.0); CARBON DIOXIDE 29 mmol/L (23-29); CHLORIDE 104 mmol/L (98-107); CREATININE 0.86 mg/dL (0.55-1.30); GFR AFRICAN AMERICAN 88 mL/min (>90); GLUCOSE 87 mg/dL (74-106); POTASSIUM 3.6 mmol/L (3.5-5.1); SODIUM SERUM 140 mmol/L (136-145); TOTAL BILIRUBIN 0.3 mg/dL (0.0-1.0); TOTAL PROTEIN, SERUM 7.7 g/dL (6.4-8.3); UREA NITROGEN, BLOOD 14 mg/dL (8-21)
[2024-06-04 21:49] LABS: GFR NON AFRICAN-AMERICAN 73 mL/min (>90)
[2024-06-04 21:50] LABS: BILIRUBIN,DIRECT 0.1 mg/dL (0.0-0.3); LIPASE 58 U/L (16-77)
[2024-06-04] MEDS: NACL 0.9% 1,000 ML IV ONE (22:56)
[2024-06-04] MEDS: ONDANSETRON HCL 4 MG/2 ML VIAL IVP ONE (23:15)
[2024-06-04] MEDS ORDERED: MORPHINE 4 MG INJ. 4 MG/ML VIAL ONE (23:16)
[2024-06-04] MEDS: MORPHINE 4 MG INJ. 4 MG/ML VIAL IVP ONE (23:21)
[2024-06-04 23:51] LABS: BILIRUBIN,URINE NEGATIVE (NEGATIVE); BLOOD, URINE 1+ (NEGATIVE); CLARITY/URINE CLEAR (CLEAR); COLOR,URINE YELLOW (YELLOW); GLUCOSE,URINE NEGATIVE (NEGATIVE); KETONES,URINE NEGATIVE (NEGATIVE); LEUKOCYTE ESTERASE ,URINE 2+ (NEGATIVE); NITRITE, URINE NEGATIVE (NEGATIVE); PROTEIN URINE NEGATIVE (NEGATIVE); UROBILINOGEN,URINE 0.2 (0.2-1.0)
[2024-06-05 00:51] LABS: BACTERIA,URINE FEW /HPF (None Seen)
[2024-06-05] MEDS ORDERED: PIPERACILLIN/TAZOBACTAM 3.375 GM/VIAL (ZOSYN) IV ONE (01:24)
[2024-06-05] MEDS: HYDROmorphone 1 MG/ML INJ. CARTRIDGE IVP ONE (02:30)
[2024-06-05] MEDS: DIPHENHYDRAMINE INJ 50 MG/ML VIAL IVP ONE (02:30)
[2024-06-05] MEDS: PIPERACILLIN/TAZO 3.375 GM in NS 50 ML IV ONE (02:32)
[2024-06-05 03:33] VITALS: BP_SYST 124; PULSE 68; RESP 18; TEMP 98; O2SAT 99
== END 2024-06-05 03:33 | disposition short-term general hospital (02) ==
LOC: SED 19:51
DX: N39.0 Urinary tract infection, site not specified (principal); R10.30 Lower abdominal pain, unspecified; R00.2 Palpitations; E11.9 Type 2 diabetes mellitus without complications; I10 Essential (primary) hypertension; E03.9 Hypothyroidism, unspecified; F41.9 Anxiety disorder, unspecified; K21.9 Gastro-esophageal reflux disease without esophagitis; Z88.1 Allergy status to other antibiotic agents; Z88.2 Allergy status to sulfonamides; Z88.6 Allergy status to analgesic agent; Z88.8 Allergy status to other drugs, medicaments and biological substances; Z91.041 Radiographic dye allergy status; Z79.899 Other long term (current) drug therapy; Z79.890 Hormone replacement therapy; Z79.85 Long-term (current) use of injectable non-insulin antidiabetic drugs
CPT/HCPCS: 99285; 74176; 96375 ×2; 71045; 96361; 80076; 80048; 81001; 83690; 85025; 85379; 87040; 87086; 84484; 36415; 96365; J2405; J2270; J7030; J1200; J2543; J1170; 81000; 81015

== ENCOUNTER 2024-06-19 15:42 | Emergency (ER) | payer MEDICAID ==
[~2024-06-19] VITALS: Ht 154.9 cm; Wt 67.1 kg
[2024-06-19 15:51] VITALS: BP_SYST 137; PULSE 84; RESP 20; TEMP 98.6; O2SAT 96
[2024-06-19 17:51] LABS: BILIRUBIN,URINE NEGATIVE (NEGATIVE); CLARITY/URINE CLEAR (CLEAR); COLOR,URINE YELLOW (YELLOW); GLUCOSE,URINE NEGATIVE (NEGATIVE); KETONES,URINE NEGATIVE (NEGATIVE); LEUKOCYTE ESTERASE ,URINE 1+ (NEGATIVE); NITRITE, URINE NEGATIVE (NEGATIVE); PROTEIN URINE NEGATIVE (NEGATIVE); UROBILINOGEN,URINE 0.2 (0.2-1.0)
[2024-06-19 17:58] LABS: BLOOD, URINE TRACE (NEGATIVE)
[2024-06-19 18:26] LABS: BACTERIA,URINE MODERATE /HPF (None Seen)
[2024-06-19 19:54] LABS: BASOPHILS % (AUTO) 0.6 % (0.0-2.0); EOSINOPHILS # (AUTO) 0.2 K/uL (0.0-0.4); EOSINOPHILS % (AUTO) 3.5 % (0.0-4.0); HEMATOCRIT 38.2 % (36-48); LYMPHOCYTES # (AUTO) 1.8 K/uL (1.0-5.5); LYMPHOCYTES % (AUTO) 32.3 % (20.5-51.5); MEAN CORPUSCULAR HEMOGLOBIN 29 pg (27-31); MEAN CORPUSCULAR HGB CONC 34 % (32-36); MEAN CORPUSCULAR VOLUME 85 fL (79.0-98.0); MONOCYTES # (AUTO) 0.4 K/uL (0.0-1.0); MONOCYTES % (AUTO) 6.8 % (1.7-9.3); NEUTROPHILS # (AUTO) 3.2 K/uL (1.8-7.7); NEUTROPHILS % (AUTO) 56.8 % (40.0-70.0); PLATELET COUNT (AUTO) 328 K/uL (130-430); RED CELL DISTRIBUTION WIDTH 15.6 % (9.0-15.0); WHITE BLOOD COUNT (AUTO) 5.5 K/uL (4.8-10.8)
[2024-06-19 20:15] LABS: CALCIUM 9.4 mg/dL (8.4-11.0); CREATININE 0.81 mg/dL (0.55-1.30); POTASSIUM 4.3 mmol/L (3.5-5.1)
[2024-06-19] MEDS ORDERED: NACL 0.9% 1,000 ML IV ONE (21:00)
[2024-06-19] MEDS ORDERED: ONDA-8 TL (21:44)
[2024-06-19] MEDS ORDERED: NITR-85 PO (21:44)
== END 2024-06-19 22:00 | disposition home or self-care (01) ==
LOC: SED 15:42
DX: R10.31 Right lower quadrant pain (principal); M79.10 Myalgia, unspecified site; E11.9 Type 2 diabetes mellitus without complications; I10 Essential (primary) hypertension; K21.9 Gastro-esophageal reflux disease without esophagitis; Z88.2 Allergy status to sulfonamides; Z88.5 Allergy status to narcotic agent; Z88.6 Allergy status to analgesic agent; Z91.041 Radiographic dye allergy status; Z88.8 Allergy status to other drugs, medicaments and biological substances
CPT/HCPCS: 36415; 80048; 81000; 81001; 81015; 81025; 85025; 87086; 87186; 93005; 99284